=== PATIENT | female | born 1950 | race Caucasian/White ===

== ENCOUNTER 2019-04-04 10:27 | Emergency (ER) | payer MEDICARE, OTHER ==
--- NOTE | 2019-04-04 11:41 | EDM.PDOC ---
ED HPI GENERAL MEDICAL PROBLEM - General Chief Complaint: Respiratory Problem Stated Complaint: SOB Time Seen by Provider: 04/04/19 11:25 Source of Information: Reports: Patient History Limitations: Reports: No Limitations - History of Present Illness INITIAL COMMENTS - FREE TEXT/NARRATIVE: 68-year-old female with COPD, has had an exacerbation of shortness of breath and cough over the past 3 days. No fevers or chills. This is a common recurring syndrome which her doctors in [place] treat with a Medrol Dosepak and antibiotics. She has no chest pain. Onset: Gradual Duration: Day(s): (4 days) Associated Symptoms: Reports: Shortness of Breath. Denies: Fever/Chills, Headaches, Nausea/Vomiting - Related Data Allergies Allergy/AdvReac Type Severity Reaction Status Date / Time No Known Allergies Allergy Verified 04/04/19 10:54 Home Meds: Home Meds Albuterol Sulfate [Proair Hfa] 1 dose IH ASDIRECTED PRN 04/04/19 [History] Fluticasone/Salmeterol [Advair 250-50 Diskus] 1 dose IH DAILY 04/04/19 [History] PARoxetine HCl [Paxil] 40 mg PO DAILY 04/04/19 [History] Tiotropium [Spiriva Handihaler] 1 appful IH DAILY 04/04/19 [History] Past Medical History Cardiovascular History: Reports: High Cholesterol, Hypertension Respiratory History: Reports: COPD Gastrointestinal History: Reports: None Genitourinary History: Reports: None 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: Musculoskeletal History: Reports: Arthritis Psychiatric History: Reports: Anxiety Endocrine/Metabolic History: Reports: Diabetes, Type I, Obesity/BMI 30+ - Past Surgical History Head Surgeries/Procedures: Reports: None HEENT Surgical History: Reports: Cataract Surgery, Tonsillectomy Cardiovascular Surgical History: Reports: None Respiratory Surgical History: Reports: None GI Surgical History: Reports: Appendectomy, Hernia, Abdominal Female Surgical History: Reports: Hysterectomy Endocrine Surgical History: Reports: None Musculoskeletal Surgical History: Reports: None Dermatological Surgical History: Reports: None Social & Family History - Tobacco Use Smoking Status *Q: Former Smoker Used Tobacco, but Quit: Yes Month/Year Tobacco Last Used: 2015 Second Hand Smoke Exposure: No - Caffeine Use Caffeine Use: Reports: Soda - Alcohol Use Days Per Week of Alcohol Use: 2 Number of Drinks Per Day: 2 Total Drinks Per Week: 4 - Recreational Drug Use Recreational Drug Use: No ED ROS GENERAL - Review of Systems Review Of Systems: See Below Constitutional: Reports: Malaise. Denies: Fever, Chills HEENT: Reports: No Symptoms Respiratory: Reports: Shortness of Breath, Cough. Denies: Sputum GI/Abdominal: Denies: Abdominal Pain, Nausea, Vomiting Skin: Reports: No Symptoms Neurological: Denies: Headache ED EXAM, GENERAL - Physical Exam Exam: See Below Exam Limited By: No Limitations General Appearance: Alert, No Apparent Distress Respiratory/Chest: No Respiratory Distress, Other (Decreased breath sounds throughout but no significant wheezing or rales. Mild increased respiratory effort) Extremities: No: Pedal Edema Neurological: Alert, Oriented Course - Vital Signs Last Recorded V/S: Last Vital Signs Temp 98 F 04/04/19 10:58 Pulse 90 04/04/19 10:58 Resp 22 H 04/04/19 10:58 BP 163/91 H 04/04/19 10:58 Pulse Ox 92 L 04/04/19 10:58 - Re-Assessments/Exams Free Text/Narrative Re-Assessment/Exam: 04/04/19 11:40 Patient was treated with Zithromax and a Medrol Dosepak. She'll return if not improving despite treatment. Departure - Departure Time of Disposition: 11:59 Disposition: Home, Self-Care 01 Clinical Impression: COPD exacerbation - Discharge Information Instructions: Chronic Obstructive Pulmonary Disease, [id number] Referrals: PCP,None [Primary Care Provider] - Forms: ED Department Discharge Care Plan Goals: Take steroids and antibiotic as prescribed. Activity as tolerated and continue your current medications. Return if worsening despite treatment.
== END 2019-04-04 11:59 | disposition home or self-care (01) ==
LOC: JP.ED 10:27
DX: J44.1 Chronic obstructive pulmonary disease with (acute) exacerbation (principal); E78.00 Pure hypercholesterolemia, unspecified; I10 Essential (primary) hypertension; Z79.899 Other long term (current) drug therapy; Z87.891 Personal history of nicotine dependence
CPT/HCPCS: 99284

== ENCOUNTER 2019-05-10 20:22 | Emergency (ER) | payer MEDICARE, OTHER ==
--- NOTE | 2019-05-10 21:55 | EDM.PDOC ---
ED HPI GENERAL MEDICAL PROBLEM - General Chief Complaint: Laceration Stated Complaint: HEAD LACERATION/COPD Time Seen by Provider: 05/10/19 21:54 Source of Information: Reports: Patient History Limitations: Reports: No Limitations - History of Present Illness INITIAL COMMENTS - FREE TEXT/NARRATIVE: was at home, getting out of shower when she slipped and hit her head on toilet. No LOC. Laceration to forehead; 1 cm. Linear; no bleeding. Alert and oriented; Onset: Today Location: Reports: Face (forehead) Severity: Mild Improves with: Reports: None Worsens with: Reports: None Associated Symptoms: Reports: No Other Symptoms - Related Data Allergies Allergy/AdvReac Type Severity Reaction Status Date / Time No Known Allergies Allergy Verified 05/10/19 21:35 Home Meds: Home Meds Albuterol Sulfate [Proair Hfa] 1 dose IH ASDIRECTED PRN 04/04/19 [History] Fluticasone/Salmeterol [Advair 250-50 Diskus] 1 dose IH DAILY 04/04/19 [History] PARoxetine HCl [Paxil] 40 mg PO DAILY 04/04/19 [History] Tiotropium [Spiriva Handihaler] 1 appful IH DAILY 04/04/19 [History] amLODIPine Besylate [Amlodipine Besylate] 05/10/19 [History] atorvaSTATin [Lipitor] 05/10/19 [History] Past Medical History Cardiovascular History: Reports: High Cholesterol, Hypertension Respiratory History: Reports: COPD Gastrointestinal History: Reports: None Genitourinary History: Reports: 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: Musculoskeletal History: Reports: Arthritis Psychiatric History: Reports: Anxiety Endocrine/Metabolic History: Reports: Diabetes, Type I, Obesity/BMI 30+ - Past Surgical History Head Surgeries/Procedures: Reports: None HEENT Surgical History: Reports: Cataract Surgery, Tonsillectomy Cardiovascular Surgical History: Reports: None Respiratory Surgical History: Reports: None GI Surgical History: Reports: Appendectomy, Hernia, Abdominal Female Surgical History: Reports: Hysterectomy Endocrine Surgical History: Reports: None Musculoskeletal Surgical History: Reports: None Dermatological Surgical History: Reports: None Social & Family History - Tobacco Use Smoking Status *Q: Never Smoker - Caffeine Use Caffeine Use: Reports: Soda ED ROS GENERAL - Review of Systems Review Of Systems: ROS reveals no pertinent complaints other than HPI. Constitutional: Reports: No Symptoms HEENT: Reports: No Symptoms Respiratory: Reports: No Symptoms, Other (she has COPD but has no concerns currently) Cardiovascular: Reports: No Symptoms Musculoskeletal: Reports: No Symptoms Skin: Reports: Other (lac to forehead) Neurological: Reports: No Symptoms Psychiatric: Reports: No Symptoms Hematologic/Lymphatic: Reports: No Symptoms ED EXAM, SKIN/RASH Exam: See Below Exam Limited By: No Limitations General Appearance: Alert, WD/WN, No Apparent Distress Eye Exam: Bilateral Eye: EOMI, PERRL Ears: Normal External Exam Nose: Normal Inspection Head: Atraumatic, Normocephalic Neck: Normal Inspection, Supple, Full Range of Motion Respiratory/Chest: No Respiratory Distress, Normal Breath Sounds Cardiovascular: Regular Rate, Rhythm Extremities: Normal Inspection, Normal Range of Motion Neurological: Alert, Oriented, CN II-XII Intact, Normal Cognition, Normal Gait, Normal Reflexes, No Motor/Sensory Deficits Psychiatric: Normal Affect, Normal Mood Skin: Warm, Dry Location, Skin: Face, Other (forehead; central, 1 cm; linear; bleeding controlled) ED SKIN PROCEDURES - Laceration/Wound Repair Forehead Lac/Wound length In cm: 1 Appearance: Subcutaneous Distal NVT: Neuro & Vascular Intact Anesthetic Type: Local Local Anesthesia - Lidocaine (Xylocaine): 1% with EPI Local Anesthetic Volume: 3cc Skin Prep: Providone-Iodine (Betadine), Saline, Sterile Drape Exploration/Debridement/Repair: Wound Explored, In a Bloodless Field, Wound Margins Revised Closed with: Sutures Suture Size: 4-0 # of Sutures: 3 Suture Type: Silk Sterile Dressing Applied: Provider Tetanus Status Addressed: Yes Complications: No Course - Vital Signs Last Recorded V/S: Last Vital Signs Temp 95.9 F 05/10/19 21:41 Pulse 91 05/10/19 21:41 Resp 22 H 05/10/19 21:41 BP 148/76 H 05/10/19 21:41 Pulse Ox 91 L 05/10/19 21:41 - Orders/Labs/Meds Meds: Medications Discontinued Medications Generic Name Dose Route Start Last Admin Trade Name Freq PRN Reason Stop Dose Admin Lidocaine/Epinephrine 5 ml 05/10/19 22:00 05/10/19 22:14 Xylocaine 1% With Epinephrine 1:100,000 SUBCUT 05/10/19 22:01 5 ml NOW STA Administration Departure - Departure Time of Disposition: 22:25 Disposition: Home, Self-Care 01 Condition: Good Clinical Impression: Laceration of forehead - Discharge Information *PRESCRIPTION DRUG MONITORING PROGRAM REVIEWED*: Not Applicable *COPY OF PRESCRIPTION DRUG MONITORING REPORT IN PATIENT [place]: Not Applicable Instructions: Laceration Care, Adult, [id number] Referrals: PCP,None [Primary Care Provider] - Forms: ED Department Discharge Additional Instructions: Keep clean and dry for 24 hours Watch for infection Remove sutures 7 days Call for questions. - Problem List & Annotations (1) Laceration of forehead SNOMED Code(s): 277463925 Code(s): S01.81XA - LACERATION W/O FOREIGN BODY OF OTH PART OF HEAD, INIT ENCNTR Status: Acute Priority: Low Current Visit: Yes Qualifiers: Encounter type: initial encounter Qualified Code(s): S01.81XA - Laceration without foreign body of other part of head, initial encounter - Problem List Review Problem List Initiated/Reviewed/Updated: Yes
[2019-05-10] MEDS ORDERED: Lidocaine 1% with EPINEPHrine 1:100,000 50 ML MDV SUBCUT STA (22:00)
== END 2019-05-10 22:36 | disposition home or self-care (01) ==
LOC: JP.ED 20:22
DX: S01.81XA Laceration without foreign body of other part of head, initial encounter (principal); E78.00 Pure hypercholesterolemia, unspecified; I10 Essential (primary) hypertension; J44.9 Chronic obstructive pulmonary disease, unspecified; E10.9 Type 1 diabetes mellitus without complications; E66.9 Obesity, unspecified; Z68.36 Body mass index [BMI] 36.0-36.9, adult; Z79.899 Other long term (current) drug therapy; W01.198A Fall on same level from slipping, tripping and stumbling with subsequent striking against other object, initial encounter; Y92.002 Bathroom of unspecified non-institutional (private) residence as the place of occurrence of the external cause
CPT/HCPCS: 12011; 99282

== ENCOUNTER 2019-05-17 11:52 | Emergency (ER) | payer MEDICARE, OTHER ==
--- NOTE | 2019-05-17 12:19 | EDM.PDOC ---
ED HPI GENERAL MEDICAL PROBLEM - General Chief Complaint: General Stated Complaint: WOUND RECHECK Time Seen by Provider: 05/17/19 12:07 Source of Information: Reports: Patient History Limitations: Reports: No Limitations - History of Present Illness INITIAL COMMENTS - FREE TEXT/NARRATIVE: 68 yo presents for suture removal. Sutures placed in this facility. healing well without complaint. denies headache - Related Data Allergies Allergy/AdvReac Type Severity Reaction Status Date / Time No Known Allergies Allergy Verified 05/17/19 12:05 Home Meds: Home Meds Albuterol Sulfate [Proair Hfa] 1 dose IH ASDIRECTED PRN 04/04/19 [History] Fluticasone/Salmeterol [Advair 250-50 Diskus] 1 dose IH DAILY 04/04/19 [History] PARoxetine HCl [Paxil] 40 mg PO DAILY 04/04/19 [History] Tiotropium [Spiriva Handihaler] 1 appful IH DAILY 04/04/19 [History] amLODIPine Besylate [Amlodipine Besylate] 05/10/19 [History] atorvaSTATin [Lipitor] 05/10/19 [History] Past Medical History Cardiovascular History: Reports: High Cholesterol, Hypertension Respiratory History: Reports: COPD Gastrointestinal History: Reports: None Genitourinary History: Reports: None 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: Musculoskeletal History: Reports: Arthritis Psychiatric History: Reports: Anxiety Endocrine/Metabolic History: Reports: Diabetes, Type I, Obesity/BMI 30+ - Past Surgical History Head Surgeries/Procedures: Reports: None HEENT Surgical History: Reports: Cataract Surgery, Tonsillectomy Cardiovascular Surgical History: Reports: None Respiratory Surgical History: Reports: None GI Surgical History: Reports: Appendectomy, Hernia, Abdominal Female Surgical History: Reports: Hysterectomy Endocrine Surgical History: Reports: None Musculoskeletal Surgical History: Reports: None Dermatological Surgical History: Reports: None Social & Family History - Tobacco Use Smoking Status *Q: Former Smoker Used Tobacco, but Quit: Yes Month/Year Tobacco Last Used: 2015 - Caffeine Use Caffeine Use: Reports: Soda - Recreational Drug Use Recreational Drug Use: No ED ROS GENERAL - Review of Systems Review Of Systems: See Below Constitutional: Denies: Fever, Chills, Fatigue Skin: Reports: No Symptoms ED EXAM, GENERAL - Physical Exam Exam: See Below Free Text/Narrative:: exam limited to laceration Exam Limited By: No Limitations General Appearance: Alert, WD/WN, No Apparent Distress Skin Exam: Other (wound sutures removed, healing well) ED GENERAL MEDICAL PROCEDURES - Additional/Other Procedure(s) Other (Free Text) Procedure(s): 3 sutures removed. wound left open. pt tolerated well Course - Vital Signs Last Recorded V/S: Last Vital Signs Temp 35.8 C 05/17/19 12:07 Pulse 93 05/17/19 12:07 Resp 15 05/17/19 12:07 BP 151/74 H 05/17/19 12:07 Pulse Ox 93 L 05/17/19 12:07 Departure - Departure Time of Disposition: 12:18 Disposition: Home, Self-Care 01 Condition: Good Clinical Impression: Visit for suture removal - Discharge Information *PRESCRIPTION DRUG MONITORING PROGRAM REVIEWED*: Not Applicable *COPY OF PRESCRIPTION DRUG MONITORING REPORT IN PATIENT [place]: Not Applicable Instructions: Suture Removal, Care After Referrals: PCP,None [Primary Care Provider] - Forms: ED Department Discharge Additional Instructions: massage daily with facial lotion protect from the sun
== END 2019-05-17 12:42 | disposition home or self-care (01) ==
LOC: JP.ED 11:52
DX: S01.81XD Laceration without foreign body of other part of head, subsequent encounter (principal); W01.198D Fall on same level from slipping, tripping and stumbling with subsequent striking against other object, subsequent encounter
CPT/HCPCS: 99281; 99282

== ENCOUNTER 2020-06-13 01:36 | Inpatient (IN) | payer MEDICARE, OTHER ==
[2020-06-13] MEDS ORDERED: Sodium Chloride 0.9% 10 ML Syringe FLUSH PRN ×2 (02:09→06:11)
[2020-06-13] MEDS ORDERED: Lactated Ringers 1,000 ML IV SCH (02:15)
--- NOTE | 2020-06-13 02:46 | EDM.PDOCBH ---
ED HPI GENERAL MEDICAL PROBLEM - General Chief Complaint: Drug or Alcohol Abuse Stated Complaint: MEDICAL [facility] Time Seen by Provider: 06/13/20 02:05 Source of Information: Reports: Patient, EMS, RN Notes Reviewed History Limitations: Reports: No Limitations - History of Present Illness INITIAL COMMENTS - FREE TEXT/NARRATIVE: 70-year-old female presents emergency department today via EMS services she did have a suicidal attempt while consuming a large amount of alcohol tonight she took handfuls of Paxil prescribed medication for depression. She states she did not want to live anymore and feels it has been a culmination of events within her family over the last year or so. Estimated time of ingestion approximately 11:30 PM on June 12 - Related Data Allergies Allergy/AdvReac Type Severity Reaction Status Date / Time No Known Allergies Allergy Verified 06/13/20 01:47 Home Meds: Home Meds Albuterol Sulfate [Proair Hfa] 1 dose IH ASDIRECTED PRN 04/04/19 [History] Fluticasone Propion/Salmeterol [Advair 250-50 Diskus] 1 dose IH BID 04/04/19 [History] PARoxetine HCl [Paxil] 40 mg PO DAILY 04/04/19 [History] Tiotropium [Spiriva Handihaler] 2 puff IH DAILY 04/04/19 [History] amLODIPine Besylate [Amlodipine Besylate] 5 mg PO DAILY 05/10/19 [History] atorvaSTATin [Lipitor] 20 mg PO DAILY 05/10/19 [History] Past Medical History Cardiovascular History: Reports: High Cholesterol, Hypertension Respiratory History: Reports: COPD WEATHER[place] History: Reports: Musculoskeletal History: Reports: Arthritis Psychiatric History: Reports: Anxiety Endocrine/Metabolic History: Reports: Diabetes, Type I, Obesity/BMI 30+ - Past Surgical History Head Surgeries/Procedures: Reports: None HEENT Surgical History: Reports: Cataract Surgery, Tonsillectomy Cardiovascular Surgical History: Reports: None Respiratory Surgical History: Reports: None GI Surgical History: Reports: Appendectomy, Hernia, Abdominal Female Surgical History: Reports: Hysterectomy Endocrine Surgical History: Reports: None Musculoskeletal Surgical History: Reports: None Dermatological Surgical History: Reports: None Social & Family History - Tobacco Use Smoking Status *Q: Former Smoker Used Tobacco, but Quit: No - Caffeine Use Caffeine Use: Reports: Soda - Recreational Drug Use Recreational Drug Use: No ED ROS GENERAL - Review of Systems Review Of Systems: See Below Constitutional: Reports: No Symptoms HEENT: Reports: No Symptoms Respiratory: Reports: No Symptoms Cardiovascular: Reports: No Symptoms GI/Abdominal: Reports: No Symptoms : Reports: No Symptoms Psychiatric: Reports: Depression, Suicidal Ideation ED EXAM, BEHAVIORAL HEALTH - Physical Exam Exam: See Below Exam Limited By: No Limitations General Appearance: Alert, WD/WN, No Apparent Distress Eye Exam: Bilateral Eye: PERRL Respiratory/Chest: No Respiratory Distress, Lungs Clear, Normal Breath Sounds, No Accessory Muscle Use, Chest Non-Tender Cardiovascular: Regular Rate, Rhythm, No Murmur GI/Abdominal: Soft, Non-Tender Psychiatric: Depressed Mood, Suicidal Plan, Suicidal Thoughts COURSE, BEHAVIORAL HEALTH COMP - Course Vital Signs: Last Vital Signs Temp 97.8 F 06/13/20 01:50 Pulse 90 06/13/20 02:29 Resp 17 06/13/20 02:29 BP 91/51 L 06/13/20 02:29 Pulse Ox 91 L 06/13/20 02:29 Orders, Labs, Meds: Active Orders 24 hr Category Date Time Status EKG Documentation Completion [RC] ASDIRECTED Care 06/13/20 02:10 Active Peripheral IV Care [RC] . DIRECTED Care 06/13/20 02:09 Active Lactated Ringers [Ringers, Lactated] 1,000 ml Med 06/13/20 02:15 Active IV ASDIRECTED Sodium Chloride 0.9% [Saline Flush] Med 06/13/20 02:09 Active 10 ml FLUSH ASDIRECTED PRN Peripheral IV Insertion Adult [OM.PC] Urgent Oth 06/13/20 02:09 Ordered EKG 12 Lead [EK] Urgent Ther 06/13/20 02:09 Ordered Medication Orders Lactated Ringer's (Ringers, Lactated) 1,000 mls @ 125 mls/hr IV ASDIRECTED HIRAM Last Admin: 06/13/20 02:49 Dose: 125 mls/hr Documented by: AUDREY Sodium Chloride (Saline Flush) 10 ml FLUSH ASDIRECTED PRN PRN Reason: Keep Vein Open Laboratory Tests 06/13/20 06/13/20 06/13/20 Range/Units 01:45 02:09 02:09 WBC (4.5-11.0) K/uL RBC (3.30-5.50) M/uL Hgb (12.0-15.0) g/dL Hct (36.0-48.0) % MCV (80-98) fL MCH (27-31) pg MCHC (32-36) % Plt Count (150-400) K/uL Neut % (Auto) (36-66) % Lymph % (Auto) (24-44) % Placer % (Auto) (2-6) % Eos % (Auto) (2-4) % Baso % (Auto) (0-1) % PT (9.5-12.0) sec INR (0.80-1.20) Sodium (140-148) mmol/L Potassium (3.6-5.2) mmol/L Chloride (100-108) mmol/L Carbon Dioxide (21-32) mmol/L Anion Gap (5.0-14.0) mmol/L BUN (7-18) mg/dL Creatinine (0.6-1.0) mg/dL Est Cr Clr Drug Dosing Estimated GFR (MDRD) (>60) Glucose (74-106) mg/dL Calcium (8.5-10.1) mg/dL Magnesium (1.8-2.4) mg/dL Total Bilirubin (0.2-1.0) mg/dL AST (15-37) U/L ALT (12-78) U/L Alkaline Phosphatase (46-116) U/L Total Protein (6.4-8.2) g/dL Albumin (3.4-5.0) g/dL Globulin (2.3-3.5) g/dL Albumin/Globulin Ratio (1.2-2.2) Urine Color Yellow (YELLOW) Urine Appearance Clear (CLEAR) Urine pH 5.5 (5.0-8.0) Ur Specific [place] 1.010 (1.008-1.030) Urine Protein Negative (NEGATIVE) mg/dL Urine Glucose (UA) Negative (NEGATIVE) mg/dL Urine Ketones Negative (NEGATIVE) mg/dL Urine Occult Blood Small H (NEGATIVE) Urine Nitrite Negative (NEGATIVE) Urine Bilirubin Negative (NEGATIVE) Urine Urobilinogen 0.2 (0.2-1.0) EU/dL Ur Leukocyte Esterase Negative (NEGATIVE) Urine RBC 0-5 (0-5) Urine WBC 0-5 (0-5) Ur Epithelial Cells Rare Amorphous Sediment Not seen Urine Bacteria Not seen Urine Mucus Not seen Salicylates (2.0-20.0) mg/dL Urine Opiates Screen Negative (NEGATIVE) Ur Oxycodone Screen Negative (NEGATIVE) Urine Methadone Screen Negative (NEGATIVE) Ur Propoxyphene Screen Negative (NEGATIVE) Acetaminophen (10.0-30.0) ug/mL Ur Barbiturates Screen Negative (NEGATIVE) Ur Tricyclics Screen Negative (NEGATIVE) Ur Phencyclidine Scrn Negative (NEGATIVE) Ur Amphetamine Screen Negative (NEGATIVE) U Methamphetamines Scrn Negative (NEGATIVE) Urine MDMA Screen Negative (NEGATIVE) U Benzodiazepines Scrn Negative (NEGATIVE) U Cocaine Metab Screen Negative (NEGATIVE) U Marijuana (THC) Screen Negative (NEGATIVE) Ethyl Alcohol 181 mg/dL 06/13/20 06/13/20 06/13/20 Range/Units 02:15 02:15 02:15 WBC 6.7 (4.5-11.0) K/uL RBC 4.23 (3.30-5.50) M/uL Hgb 12.6 (12.0-15.0) g/dL Hct 39.2 (36.0-48.0) % MCV 93 (80-98) fL MCH 30 (27-31) pg MCHC 32 (32-36) % Plt Count 324 (150-400) K/uL Neut % (Auto) 63 (36-66) % Lymph % (Auto) 25 (24-44) % Placer % (Auto) 8 H (2-6) % Eos % (Auto) 4 (2-4) % Baso % (Auto) 1 (0-1) % PT 10.5 (9.5-12.0) sec INR 0.96 (0.80-1.20) Sodium 142 (140-148) mmol/L Potassium 3.7 (3.6-5.2) mmol/L Chloride 107 (100-108) mmol/L Carbon Dioxide 23 (21-32) mmol/L Anion Gap 11.8 (5.0-14.0) mmol/L BUN 12 (7-18) mg/dL Creatinine 0.9 (0.6-1.0) mg/dL Est Cr Clr Drug Dosing TNP Estimated GFR (MDRD) > 60 (>60) Glucose 130 H (74-106) mg/dL Calcium 8.4 L (8.5-10.1) mg/dL Magnesium 2.0 (1.8-2.4) mg/dL Total Bilirubin 0.2 (0.2-1.0) mg/dL AST 18 (15-37) U/L ALT 23 (12-78) U/L Alkaline Phosphatase 95 (46-116) U/L Total Protein 6.2 L (6.4-8.2) g/dL Albumin 3.3 L (3.4-5.0) g/dL Globulin 2.9 (2.3-3.5) g/dL Albumin/Globulin Ratio 1.1 L (1.2-2.2) Urine Color (YELLOW) Urine Appearance (CLEAR) Urine pH (5.0-8.0) Ur Specific [place] (1.008-1.030) Urine Protein (NEGATIVE) mg/dL Urine Glucose (UA) (NEGATIVE) mg/dL Urine Ketones (NEGATIVE) mg/dL Urine Occult Blood (NEGATIVE) Urine Nitrite (NEGATIVE) Urine Bilirubin (NEGATIVE) Urine Urobilinogen (0.2-1.0) EU/dL Ur Leukocyte Esterase (NEGATIVE) Urine RBC (0-5) Urine WBC (0-5) Ur Epithelial Cells Amorphous Sediment Urine Bacteria Urine Mucus Salicylates (2.0-20.0) mg/dL Urine Opiates Screen (NEGATIVE) Ur Oxycodone Screen (NEGATIVE) Urine Methadone Screen (NEGATIVE) Ur Propoxyphene Screen (NEGATIVE) Acetaminophen (10.0-30.0) ug/mL Ur Barbiturates Screen (NEGATIVE) Ur Tricyclics Screen (NEGATIVE) Ur Phencyclidine Scrn (NEGATIVE) Ur Amphetamine Screen (NEGATIVE) U Methamphetamines Scrn (NEGATIVE) Urine MDMA Screen (NEGATIVE) U Benzodiazepines Scrn (NEGATIVE) U Cocaine Metab Screen (NEGATIVE) U Marijuana (THC) Screen (NEGATIVE) Ethyl Alcohol mg/dL 06/13/20 06/13/20 Range/Units 02:15 02:15 WBC (4.5-11.0) K/uL RBC (3.30-5.50) M/uL Hgb (12.0-15.0) g/dL Hct (36.0-48.0) % MCV (80-98) fL MCH (27-31) pg MCHC (32-36) % Plt Count (150-400) K/uL Neut % (Auto) (36-66) % Lymph % (Auto) (24-44) % [place] % (Auto) (2-6) % Eos % (Auto) (2-4) % Baso % (Auto) (0-1) % PT (9.5-12.0) sec INR (0.80-1.20) Sodium (140-148) mmol/L Potassium (3.6-5.2) mmol/L Chloride (100-108) mmol/L Carbon Dioxide (21-32) mmol/L Anion Gap (5.0-14.0) mmol/L BUN (7-18) mg/dL Creatinine (0.6-1.0) mg/dL Est Cr Clr Drug Dosing Estimated GFR (MDRD) (>60) Glucose (74-106) mg/dL Calcium (8.5-10.1) mg/dL Magnesium (1.8-2.4) mg/dL Total Bilirubin (0.2-1.0) mg/dL AST (15-37) U/L ALT (12-78) U/L Alkaline Phosphatase (46-116) U/L Total Protein (6.4-8.2) g/dL Albumin (3.4-5.0) g/dL Globulin (2.3-3.5) g/dL Albumin/Globulin Ratio (1.2-2.2) Urine Color (YELLOW) Urine Appearance (CLEAR) Urine pH (5.0-8.0) Ur Specific [place] (1.008-1.030) Urine Protein (NEGATIVE) mg/dL Urine Glucose (UA) (NEGATIVE) mg/dL Urine Ketones (NEGATIVE) mg/dL Urine Occult Blood (NEGATIVE) Urine Nitrite (NEGATIVE) Urine Bilirubin (NEGATIVE) Urine Urobilinogen (0.2-1.0) EU/dL Ur Leukocyte Esterase (NEGATIVE) Urine RBC (0-5) Urine WBC (0-5) Ur Epithelial Cells Amorphous Sediment Urine Bacteria Urine Mucus Salicylates 1.3 L (2.0-20.0) mg/dL Urine Opiates Screen (NEGATIVE) Ur Oxycodone Screen (NEGATIVE) Urine Methadone Screen (NEGATIVE) Ur Propoxyphene Screen (NEGATIVE) Acetaminophen 0.0 L (10.0-30.0) ug/mL Ur Barbiturates Screen (NEGATIVE) Ur Tricyclics Screen (NEGATIVE) Ur Phencyclidine Scrn (NEGATIVE) Ur Amphetamine Screen (NEGATIVE) U Methamphetamines Scrn (NEGATIVE) Urine MDMA Screen (NEGATIVE) U Benzodiazepines Scrn (NEGATIVE) U Cocaine Metab Screen (NEGATIVE) U Marijuana (THC) Screen (NEGATIVE) Ethyl Alcohol mg/dL Medications Generic Name Dose Route Start Last Admin Trade Name Freq PRN Reason Stop Dose Admin Lactated Ringer's 1,000 mls @ 125 mls/hr 06/13/20 02:15 06/13/20 02:49 Ringers, Lactated IV 125 mls/hr ASDIRECTED HIRAM Administration Sodium Chloride 10 ml 06/13/20 02:09 Saline Flush FLUSH ASDIRECTED PRN Keep Vein Open Departure - Departure Time of Disposition: 03:03 Disposition: Home, Self-Care 01 Condition: Fair Clinical Impression: Suicide attempt, Intentional overdose of drug in tablet form - Discharge Information Referrals: PCP,None [Primary Care Provider] - Forms: ED Department Discharge Sepsis Event Note (ED) - Evaluation Sepsis Screening Result: No Definite Risk - Focused Exam Vital Signs: Vital Signs Temp Pulse Resp BP Pulse Ox 06/13/20 02:29 90 17 91/51 L 91 L 06/13/20 01:50 97.8 F 89 12 113/64 92 L - My Orders Last 24 Hours: My Active Orders 06/13/20 02:09 Peripheral IV Care [RC] . DIRECTED Sodium Chloride 0.9% [Saline Flush] 10 ml FLUSH ASDIRECTED PRN Peripheral IV Insertion Adult [OM.PC] Urgent EKG 12 Lead [EK] Urgent 06/13/20 02:10 EKG Documentation Completion [RC] ASDIRECTED 06/13/20 02:15 Lactated Ringers [Ringers, Lactated] 1,000 ml IV ASDIRECTED - Assessment/Plan Last 24 Hours: My Active Orders 06/13/20 02:09 Peripheral IV Care [RC] . DIRECTED Sodium Chloride 0.9% [Saline Flush] 10 ml FLUSH ASDIRECTED PRN Peripheral IV Insertion Adult [OM.PC] Urgent EKG 12 Lead [EK] Urgent 06/13/20 02:10 EKG Documentation Completion [RC] ASDIRECTED 06/13/20 02:15 Lactated Ringers [Ringers, Lactated] 1,000 ml IV ASDIRECTED Plan: Assessment Acuity = acute Site and laterality = suicidal attempts with Paxil overdose Etiology = unknown Manifestations = none Location of injury = Home Lab values = CBC, CMP, INR within normal limits EKG does demonstrate a prolonged QT interval at 538 otherwise sinus rhythm no ST elevations or depressions, alcohol level is 181- Tylenol negative salicylate level Plan Call discussed case hospitalist on-call at 2:40 he kindly agreed to come evaluate the patient in the emergency department for admission suicidal precautions have been taken did discuss case with poison control recommended observation for suicide next 8 to 12 hours also long QT syndrome as possible This note was dictated using [employer] voice recognition software please call with any questions on syntax or grammar.
[2020-06-13] MEDS ORDERED: Ondansetron 4 MG/2 ML SDV IV PRN (06:11)
[2020-06-13] MEDS ORDERED: Enoxaparin 40 MG/0.4 ML Syringe SUBCUT SCH (06:11)
--- NOTE | 2020-06-13 06:19 | PCM.HP.2 ---
H&P History of Present Illness - General Date of Service: 06/13/20 Admit Problem/Dx: Admission Diagnosis/Problem Admission Diagnosis/Problem Drug overdose - suicide Source of Information: Patient, Provider, RN Notes Reviewed History Limitations: Reports: No Limitations - History of Present Illness Initial Comments - Free Text/Narative: Ms. Parnell is a 70-year-old woman who was admitted through the emergency department for monitoring after having taken a drug overdose in an apparent suicide attempt. She had family visiting for the weekend and there was stress related to that as well as alcohol intoxication. She took an overdose of Paxil last night, which she now admits was a mistake. She currently denies suicidal ideation or intent. Poison control is recommended that she be monitored for 12 hours. - Related Data Allergies/Adverse Reactions: Allergies Allergy/AdvReac Type Severity Reaction Status Date / Time No Known Allergies Allergy Verified 06/13/20 01:47 Home Medications: Home Meds Albuterol Sulfate [Proair Hfa] 1 dose IH ASDIRECTED PRN 04/04/19 [History] Fluticasone Propion/Salmeterol [Advair 250-50 Diskus] 1 dose IH BID 04/04/19 [History] PARoxetine HCl [Paxil] 40 mg PO DAILY 04/04/19 [History] Tiotropium [Spiriva Handihaler] 2 puff IH DAILY 04/04/19 [History] amLODIPine Besylate [Amlodipine Besylate] 5 mg PO DAILY 05/10/19 [History] atorvaSTATin [Lipitor] 20 mg PO DAILY 05/10/19 [History] Past Medical History Cardiovascular History: Reports: High Cholesterol, Hypertension Respiratory History: Reports: COPD Gastrointestinal History: Reports: None Genitourinary History: Reports: None 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: Musculoskeletal History: Reports: Arthritis Psychiatric History: Reports: Anxiety Endocrine/Metabolic History: Reports: Diabetes, Type I, Obesity/BMI 30+ - Past Surgical History Head Surgeries/Procedures: Reports: None HEENT Surgical History: Reports: Cataract Surgery, Tonsillectomy Cardiovascular Surgical History: Reports: None Respiratory Surgical History: Reports: None GI Surgical History: Reports: Appendectomy, Hernia, Abdominal Female Surgical History: Reports: Hysterectomy Endocrine Surgical History: Reports: None Musculoskeletal Surgical History: Reports: None Dermatological Surgical History: Reports: None Social & Family History - Tobacco Use Smoking Status *Q: Former Smoker Used Tobacco, but Quit: No - Caffeine Use Caffeine Use: Reports: Soda - Recreational Drug Use Recreational Drug Use: No H&P Review of Systems - Review of Systems: Review Of Systems: See Below General: Reports: No Symptoms HEENT: Reports: No Symptoms Pulmonary: Reports: Shortness of Breath. Denies: Wheezing, Pleuritic Chest Pain, Cough, Sputum, Hemoptysis Cardiovascular: Reports: Dyspnea on Exertion. Denies: Chest Pain, Palpitations, Orthopnea, PND, Edema, Lightheadedness Gastrointestinal: Reports: No Symptoms Genitourinary: Reports: No Symptoms Musculoskeletal: Reports: No Symptoms Skin: Reports: No Symptoms Psychiatric: Reports: Depression, Anxiety Neurological: Reports: No Symptoms Hematologic/Lymphatic: Reports: No Symptoms Immunologic: Reports: No Symptoms Exam - Exam Exam: See Below - Vital Signs Vital Signs: Last Vital Signs Temp 97.8 F 06/13/20 01:50 Pulse 91 06/13/20 04:25 Resp 15 06/13/20 04:25 BP 144/87 H 06/13/20 04:25 Pulse Ox 93 L 06/13/20 04:25 Weight: 190 lb - Exam Quality Assessment: DVT Prophylaxis General: Alert, Oriented, Cooperative, Mild Distress HEENT: Conjunctiva Clear, Hearing Intact, Mucosa Moist & [place], Normal Nasal Septum, Posterior Pharynx Clear, Pupils Equal Neck: Supple, Trachea Midline, +2 Carotid Pulse wo Bruit Lungs: Clear to Auscultation, Normal Respiratory Effort, Decreased Breath Sounds. No: Rales, Rhonchi, Wheezing Cardiovascular: Regular Rate, Regular Rhythm, Normal S1, Normal S2. No: Systolic Murmur, Diastolic Murmur GI/Abdominal Exam: Soft, Non-Tender, No Organomegaly, No Distention Back Exam: Normal Inspection, Full Range of Motion Extremities: Non-Tender, No Pedal Edema Skin: Warm, Dry, Intact Neurological: Cranial Nerves Intact, Strength Equal Bilateral, Normal Speech, Normal Tone, Sensation Intact. No: Focal Deficit Neuro Extensive - Mental Status: Alert, Oriented x3, Normal Mood/Affect, Normal Cognition, Memory Intact - Patient Data Lab Results Last 24 hrs: Laboratory Results - last 24 hr 06/13/20 06/13/20 06/13/20 Range/Units 01:45 02:09 02:09 WBC (4.5-11.0) K/uL RBC (3.30-5.50) M/uL Hgb (12.0-15.0) g/dL Hct (36.0-48.0) % MCV (80-98) fL MCH (27-31) pg MCHC (32-36) % Plt Count (150-400) K/uL Neut % (Auto) (36-66) % Lymph % (Auto) (24-44) % [place] % (Auto) (2-6) % Eos % (Auto) (2-4) % Baso % (Auto) (0-1) % PT (9.5-12.0) sec INR (0.80-1.20) Sodium (140-148) mmol/L Potassium (3.6-5.2) mmol/L Chloride (100-108) mmol/L Carbon Dioxide (21-32) mmol/L Anion Gap (5.0-14.0) mmol/L BUN (7-18) mg/dL Creatinine (0.6-1.0) mg/dL Est Cr Clr Drug Dosing Estimated GFR (MDRD) (>60) Glucose (74-106) mg/dL Calcium (8.5-10.1) mg/dL Magnesium (1.8-2.4) mg/dL Total Bilirubin (0.2-1.0) mg/dL AST (15-37) U/L ALT (12-78) U/L Alkaline Phosphatase (46-116) U/L Total Protein (6.4-8.2) g/dL Albumin (3.4-5.0) g/dL Globulin (2.3-3.5) g/dL Albumin/Globulin Ratio (1.2-2.2) Urine Color Yellow (YELLOW) Urine Appearance Clear (CLEAR) Urine pH 5.5 (5.0-8.0) Ur Specific [place] 1.010 (1.008-1.030) Urine Protein Negative (NEGATIVE) mg/dL Urine Glucose (UA) Negative (NEGATIVE) mg/dL Urine Ketones Negative (NEGATIVE) mg/dL Urine Occult Blood Small H (NEGATIVE) Urine Nitrite Negative (NEGATIVE) Urine Bilirubin Negative (NEGATIVE) Urine Urobilinogen 0.2 (0.2-1.0) EU/dL Ur Leukocyte Esterase Negative (NEGATIVE) Urine RBC 0-5 (0-5) Urine WBC 0-5 (0-5) Ur Epithelial Cells Rare Amorphous Sediment Not seen Urine Bacteria Not seen Urine Mucus Not seen Salicylates (2.0-20.0) mg/dL Urine Opiates Screen Negative (NEGATIVE) Ur Oxycodone Screen Negative (NEGATIVE) Urine Methadone Screen Negative (NEGATIVE) Ur Propoxyphene Screen Negative (NEGATIVE) Acetaminophen (10.0-30.0) ug/mL Ur Barbiturates Screen Negative (NEGATIVE) Ur Tricyclics Screen Negative (NEGATIVE) Ur Phencyclidine Scrn Negative (NEGATIVE) Ur Amphetamine Screen Negative (NEGATIVE) U Methamphetamines Scrn Negative (NEGATIVE) Urine MDMA Screen Negative (NEGATIVE) U Benzodiazepines Scrn Negative (NEGATIVE) U Cocaine Metab Screen Negative (NEGATIVE) U Marijuana (THC) Screen Negative (NEGATIVE) Ethyl Alcohol 181 mg/dL 06/13/20 06/13/20 06/13/20 Range/Units 02:15 02:15 02:15 WBC 6.7 (4.5-11.0) K/uL RBC 4.23 (3.30-5.50) M/uL Hgb 12.6 (12.0-15.0) g/dL Hct 39.2 (36.0-48.0) % MCV 93 (80-98) fL MCH 30 (27-31) pg MCHC 32 (32-36) % Plt Count 324 (150-400) K/uL Neut % (Auto) 63 (36-66) % Lymph % (Auto) 25 (24-44) % [place] % (Auto) 8 H (2-6) % Eos % (Auto) 4 (2-4) % Baso % (Auto) 1 (0-1) % PT 10.5 (9.5-12.0) sec INR 0.96 (0.80-1.20) Sodium 142 (140-148) mmol/L Potassium 3.7 (3.6-5.2) mmol/L Chloride 107 (100-108) mmol/L Carbon Dioxide 23 (21-32) mmol/L Anion Gap 11.8 (5.0-14.0) mmol/L BUN 12 (7-18) mg/dL Creatinine 0.9 (0.6-1.0) mg/dL Est Cr Clr Drug Dosing TNP Estimated GFR (MDRD) > 60 (>60) Glucose 130 H (74-106) mg/dL Calcium 8.4 L (8.5-10.1) mg/dL Magnesium 2.0 (1.8-2.4) mg/dL Total Bilirubin 0.2 (0.2-1.0) mg/dL AST 18 (15-37) U/L ALT 23 (12-78) U/L Alkaline Phosphatase 95 (46-116) U/L Total Protein 6.2 L (6.4-8.2) g/dL Albumin 3.3 L (3.4-5.0) g/dL Globulin 2.9 (2.3-3.5) g/dL Albumin/Globulin Ratio 1.1 L (1.2-2.2) Urine Color (YELLOW) Urine Appearance (CLEAR) Urine pH (5.0-8.0) Ur Specific [place] (1.008-1.030) Urine Protein (NEGATIVE) mg/dL Urine Glucose (UA) (NEGATIVE) mg/dL Urine Ketones (NEGATIVE) mg/dL Urine Occult Blood (NEGATIVE) Urine Nitrite (NEGATIVE) Urine Bilirubin (NEGATIVE) Urine Urobilinogen (0.2-1.0) EU/dL Ur Leukocyte Esterase (NEGATIVE) Urine RBC (0-5) Urine WBC (0-5) Ur Epithelial Cells Amorphous Sediment Urine Bacteria Urine Mucus Salicylates (2.0-20.0) mg/dL Urine Opiates Screen (NEGATIVE) Ur Oxycodone Screen (NEGATIVE) Urine Methadone Screen (NEGATIVE) Ur Propoxyphene Screen (NEGATIVE) Acetaminophen (10.0-30.0) ug/mL Ur Barbiturates Screen (NEGATIVE) Ur Tricyclics Screen (NEGATIVE) Ur Phencyclidine Scrn (NEGATIVE) Ur Amphetamine Screen (NEGATIVE) U Methamphetamines Scrn (NEGATIVE) Urine MDMA Screen (NEGATIVE) U Benzodiazepines Scrn (NEGATIVE) U Cocaine Metab Screen (NEGATIVE) U Marijuana (THC) Screen (NEGATIVE) Ethyl Alcohol mg/dL 06/13/20 06/13/20 Range/Units 02:15 02:15 WBC (4.5-11.0) K/uL RBC (3.30-5.50) M/uL Hgb (12.0-15.0) g/dL Hct (36.0-48.0) % MCV (80-98) fL MCH (27-31) pg MCHC (32-36) % Plt Count (150-400) K/uL Neut % (Auto) (36-66) % Lymph % (Auto) (24-44) % [place] % (Auto) (2-6) % Eos % (Auto) (2-4) % Baso % (Auto) (0-1) % PT (9.5-12.0) sec INR (0.80-1.20) Sodium (140-148) mmol/L Potassium (3.6-5.2) mmol/L Chloride (100-108) mmol/L Carbon Dioxide (21-32) mmol/L Anion Gap (5.0-14.0) mmol/L BUN (7-18) mg/dL Creatinine (0.6-1.0) mg/dL Est Cr Clr Drug Dosing Estimated GFR (MDRD) (>60) Glucose (74-106) mg/dL Calcium (8.5-10.1) mg/dL Magnesium (1.8-2.4) mg/dL Total Bilirubin (0.2-1.0) mg/dL AST (15-37) U/L ALT (12-78) U/L Alkaline Phosphatase (46-116) U/L Total Protein (6.4-8.2) g/dL Albumin (3.4-5.0) g/dL Globulin (2.3-3.5) g/dL Albumin/Globulin Ratio (1.2-2.2) Urine Color (YELLOW) Urine Appearance (CLEAR) Urine pH (5.0-8.0) Ur Specific [place] (1.008-1.030) Urine Protein (NEGATIVE) mg/dL Urine Glucose (UA) (NEGATIVE) mg/dL Urine Ketones (NEGATIVE) mg/dL Urine Occult Blood (NEGATIVE) Urine Nitrite (NEGATIVE) Urine Bilirubin (NEGATIVE) Urine Urobilinogen (0.2-1.0) EU/dL Ur Leukocyte Esterase (NEGATIVE) Urine RBC (0-5) Urine WBC (0-5) Ur Epithelial Cells Amorphous Sediment Urine Bacteria Urine Mucus Salicylates 1.3 L (2.0-20.0) mg/dL Urine Opiates Screen (NEGATIVE) Ur Oxycodone Screen (NEGATIVE) Urine Methadone Screen (NEGATIVE) Ur Propoxyphene Screen (NEGATIVE) Acetaminophen 0.0 L (10.0-30.0) ug/mL Ur Barbiturates Screen (NEGATIVE) Ur Tricyclics Screen (NEGATIVE) Ur Phencyclidine Scrn (NEGATIVE) Ur Amphetamine Screen (NEGATIVE) U Methamphetamines Scrn (NEGATIVE) Urine MDMA Screen (NEGATIVE) U Benzodiazepines Scrn (NEGATIVE) U Cocaine Metab Screen (NEGATIVE) U Marijuana (THC) Screen (NEGATIVE) Ethyl Alcohol mg/dL Result Diagrams: 06/13/20 02:15 06/13/20 02:15 Sepsis Event Note - Evaluation Sepsis Screening Result: No Definite Risk - Focused Exam Vital Signs: Vital Signs Temp Pulse Resp BP Pulse Ox 06/13/20 04:25 91 15 144/87 H 93 L 06/13/20 03:29 92 16 108/70 91 L 06/13/20 02:29 90 17 91/51 L 91 L 06/13/20 01:50 97.8 F 89 12 113/64 92 L Date Exam was Performed: 06/13/20 Time Exam was Performed: 06:19 *Q Meaningful Use (ADM) - VTE Risk Assess *Q Each Risk Factor Represents 1 Point: Obesity ( BMI > 25 kg/m2), Abnormal Pulmonary Function (COPD) Total Score 1 Point Risk Factors: 2 Each Risk Factor Represents 2 Points: Age 60 - 74 Years Total Score 2 Point Risk Factors: 2 Each Risk Factor Represents 3 Points: None Total Score 3 Point Risk Factors: 0 Each Risk Factor Represents 5 Points: None Total Score 5 Point Risk Factors: 0 Venous Thromboembolism Risk Factor Score *Q: 4 Problem List Initiated/Reviewed/Updated: Yes Orders Last 24hrs: Active Orders 24 hr Category Date Time Status Patient Status [ADT] Routine ADT 06/13/20 06:11 Active Ambulate [RC] QID Care 06/13/20 06:11 Active Cardiac Monitoring [RC] .As Directed Care 06/13/20 06:11 Active Height and Weight [RC] DAILY Care 06/13/20 06:11 Active Intake and Output [RC] QSHIFT Care 06/13/20 06:11 Active Notify Provider Vital Signs [RC] ASDIRECTED Care 06/13/20 06:11 Active Oxygen Therapy [RC] PRN Care 06/13/20 06:11 Active Peripheral IV Care [RC] . DIRECTED Care 06/13/20 06:11 Active Pulse Oximetry [RC] CONTINUOUS Care 06/13/20 06:11 Active Up With Assistance [RC] ASDIRECTED Care 06/13/20 06:11 Active Up to Chair [RC] QID Care 06/13/20 06:11 Active VTE/DVT Education [RC] Per Unit Routine Care 06/13/20 06:11 Active Vital Signs [RC] Q4H Care 06/13/20 06:11 Active Nothing per Oral Now Diet [DIET] Diet 06/13/20 Breakfast Active BASIC METABOLIC PANEL,BMP [CHEM] AM Lab 06/14/20 05:11 Ordered CBC WITH AUTO DIFF [HEME] AM Lab 06/14/20 05:11 Ordered Acetaminophen [Tylenol] Med 06/13/20 06:11 Ordered 650 mg PO Q4H PRN Enoxaparin [Lovenox] Med 06/13/20 06:11 Ordered 40 mg SUBCUT DAILY Fluticasone Propion/Salmeterol [Advair 250-50 Diskus] Med 06/13/20 09:00 Ordered 1 dose IH BID Ondansetron [Zofran] Med 06/13/20 06:11 Ordered 4 mg IV Q4H PRN Sodium Chloride 0.9% [Normal Saline] 1,000 ml Med 06/13/20 06:11 Ordered IV ASDIRECTED Sodium Chloride 0.9% [Saline Flush] Med 06/13/20 06:11 Ordered 10 ml FLUSH ASDIRECTED PRN Tiotropium [Spiriva Handihaler] Med 06/13/20 09:00 Ordered 2 puff IH DAILY amLODIPine [Norvasc] Med 06/13/20 09:00 Ordered 5 mg PO DAILY atorvaSTATin [Lipitor] Med 06/13/20 09:00 Ordered 20 mg PO DAILY polyethylene glycoL 3350 [MiraLAX] Med 06/13/20 06:11 Ordered 17 gm PO DAILY PRN Peripheral IV Insertion Adult [OM.PC] Routine Oth 06/13/20 06:11 Ordered Resuscitation Status Routine Resus Stat 06/13/20 05:38 Ordered EKG 12 Lead [EK] Urgent Ther 06/13/20 02:09 Stop Req Medication Orders Acetaminophen (Tylenol) 650 mg PO Q4H PRN PRN Reason: Pain (Mild 1-3)/fever Amlodipine Besylate (Norvasc) 5 mg PO DAILY [facility] Atorvastatin Calcium (Lipitor) 20 mg PO DAILY [facility] Enoxaparin Sodium (Lovenox) 40 mg SUBCUT DAILY [facility] Sodium Chloride (Normal Saline) 1,000 mls @ 125 mls/hr IV ASDIRECTED [facility] Non-Formulary Medication (Fluticasone Propion/Salmeterol [Advair 250-50 Diskus]) 1 dose IH BID [facility] Non-Formulary Medication (Tiotropium [Spiriva Handihaler]) 2 puff IH DAILY [facility] Ondansetron HCl (Zofran) 4 mg IV Q4H PRN PRN Reason: Nausea/Vomiting Polyethylene Glycol (Miralax) 17 gm PO DAILY PRN PRN Reason: Constipation Sodium Chloride (Saline Flush) 10 ml FLUSH ASDIRECTED PRN PRN Reason: Keep Vein Open Assessment/Plan Comment:: ASSESSMENT AND PLAN DRUG OVERDOSE/SUICIDE ATTEMPT-last night was intoxicated and became frustrated with family members. She took an overdose of Paxil, in addition to the alcohol intoxication -Monitor in ICU -Crisis team assessment later today COPD-stable with no evidence of acute exacerbation -Continue outpatient medical therapy MAINTENANCE ISSUES -DVT prophylaxis; Lovenox 40 mg subcu daily -GI prophylaxis; not indicated -Viveros catheter; not indicated -Nutrition; n.p.o. -Nicotine dependence; not required CODE STATUS-FULL CODE ADMISSION STATUS-patient will be admitted to inpatient status, expect at least a 2 night hospital stay for evaluation and management of problems as outlined above. At the time of this admission I do not reasonably expected evaluation and management of this problem will require more than a 96 hour hospital stay. DISPOSITION-anticipate discharge to home after the hospital stay. PRIMARY CARE PROVIDER- - Mortality Measure Prognosis:: Good
[2020-06-13] MEDS: Sodium Chloride 0.9% 1,000 ML IV SCH ×3 (06:36→21:17)
[2020-06-13] MEDS ORDERED: Glycopyrrolate 15.6 MCG Cap.W.Dev Kit of 6 IH SCH (07:00)
[2020-06-13] MEDS: Fluticasone-Salmeterol 113-14 MCG Powder Inhalant INH SCH ×2 (08:03→21:07)
[2020-06-13] MEDS: Glycopyrrolate 15.6 MCG Cap.W.Dev Kit of 6 IH SCH ×2 (08:03→21:07)
[2020-06-13] MEDS: atorvaSTATin 20 MG Tab PO SCH (08:12)
[2020-06-13] MEDS: amLODIPine 5 MG Tab PO SCH (08:12)
[2020-06-13] MEDS: Enoxaparin 40 MG/0.4 ML Syringe SUBCUT SCH (08:13)
[2020-06-13] MEDS ORDERED: Fluticasone-Salmeterol 113-14 MCG Powder Inhalant INH SCH (09:00)
[2020-06-13] MEDS: Acetaminophen 325 MG Tab PO PRN (09:19)
[2020-06-13] MEDS ORDERED: Gabapentin 400 MG Cap PO ONE (14:45)
[2020-06-13] MEDS ORDERED: Gabapentin 100 MG Cap PO ONE (14:45)
[2020-06-13] MEDS: LORazepam 2 MG/ML SDV IV PRN ×7 (14:50→23:58)
[2020-06-13] MEDS: Thiamine 100 MG Tab PO SCH ×2 (19:10→21:07)
[2020-06-13] MEDS: Gabapentin 400 MG Cap PO SCH (21:17)
[2020-06-14] MEDS: LORazepam 2 MG/ML SDV IV PRN ×6 (03:54→20:51)
[2020-06-14] MEDS: Sodium Chloride 0.9% 1,000 ML IV SCH (05:09)
[2020-06-14] MEDS: Gabapentin 400 MG Cap PO SCH ×3 (06:05→22:00)
[2020-06-14] MEDS: Fluticasone-Salmeterol 113-14 MCG Powder Inhalant INH SCH ×2 (07:36→20:52)
[2020-06-14] MEDS: Glycopyrrolate 15.6 MCG Cap.W.Dev Kit of 6 IH SCH ×2 (07:36→20:54)
[2020-06-14] MEDS ORDERED: Albuterol 0.083% 2.5 MG/3 ML Neb Soln NEB PRN (09:11)
[2020-06-14] MEDS ORDERED: Sodium Chloride 0.9% 1,000 ML IV SCH (09:12)
--- NOTE | 2020-06-14 09:14 | PCM.PN ---
- General Info Date of Service: 06/14/20 Subjective Update: No acute events overnight. Patient has received several doses of IV lorazepam to help manage her alcohol withdrawal. She is somewhat alert and somewhat interactive but provides minimal history as far as how she is feeling right now. She is able to tell me that she is not having any pain. For the most part she mumbles incoherently. Vital signs have been stable. She is quite tremulous when she tries to move around. She has been restless when she has been in bed. Laboratory studies are fairly unremarkable. Functional Status: Reports: Pain Controlled - Review of Systems General: Denies: Fever Neurological: Reports: Confusion, Tremors - Patient Data Vitals - Most Recent: Last Vital Signs Temp 36.6 C 06/14/20 07:00 Pulse 83 06/14/20 08:00 Resp 14 06/14/20 08:00 BP 112/57 L 06/14/20 08:00 Pulse Ox 93 L 06/14/20 08:00 Weight - Most Recent: 91.852 kg I&O - Last 24 Hours: Intake & Output 06/13/20 06/14/20 06/14/20 22:59 06:59 14:59 Intake Total 1469 1176 Balance 1469 1176 Lab Results Last 24 Hours: Laboratory Results - last 24 hr 06/14/20 06/14/20 Range/Units 05:35 05:35 WBC 11.4 H (4.5-11.0) K/uL RBC 4.35 (3.30-5.50) M/uL Hgb 13.1 (12.0-15.0) g/dL Hct 40.9 (36.0-48.0) % MCV 94 (80-98) fL MCH 30 (27-31) pg MCHC 32 (32-36) % Plt Count 350 (150-400) K/uL Neut % (Auto) 78 H (36-66) % Lymph % (Auto) 11 L (24-44) % [place] % (Auto) 10 H (2-6) % Eos % (Auto) 1 L (2-4) % Baso % (Auto) 0 (0-1) % Sodium 141 (140-148) mmol/L Potassium 4.0 (3.6-5.2) mmol/L Chloride 107 (100-108) mmol/L Carbon Dioxide 25 (21-32) mmol/L Anion Gap 9.2 (5.0-14.0) mmol/L BUN 13 (7-18) mg/dL Creatinine 1.0 (0.6-1.0) mg/dL Est Cr Clr Drug Dosing 41.99 mL/min Estimated GFR (MDRD) 55 L (>60) Glucose 118 H (74-106) mg/dL Calcium 8.5 (8.5-10.1) mg/dL Med Orders - Current: Current Medications Acetaminophen (Tylenol) 650 mg PO Q4H PRN PRN Reason: Pain (Mild 1-3)/fever Last Admin: 06/13/20 09:19 Dose: 650 mg Documented by: Albuterol (Proventil Neb Soln) 2.5 mg NEB QIDRT [facility] Albuterol (Proventil Neb Soln) 2.5 mg NEB Q4H PRN PRN Reason: shortness of breath/wheezing Amlodipine Besylate (Norvasc) 5 mg PO DAILY [facility] Last Admin: 06/13/20 08:12 Dose: 5 mg Documented by: Atorvastatin Calcium (Lipitor) 20 mg PO DAILY [facility] Last Admin: 06/13/20 08:12 Dose: 20 mg Documented by: Enoxaparin Sodium (Lovenox) 40 mg SUBCUT DAILY [facility] Last Admin: 06/13/20 08:13 Dose: 40 mg Documented by: Folic Acid (Folic Acid) 1 mg PO DAILY [facility] Gabapentin (Neurontin) 400 mg PO Q8H [facility] Stop: 06/17/20 22:01 Last Admin: 06/14/20 06:05 Dose: Not Given Documented by: Glycopyrrolate (Seebri Neohaler) 15.6 mcg IH BIDRT [facility] Last Admin: 06/14/20 07:36 Dose: 15.6 mcg Documented by: Sodium Chloride (Normal Saline) 1,000 mls @ 125 mls/hr IV ASDIRECTED [facility] Last Admin: 06/14/20 05:09 Dose: 125 mls/hr Documented by: Lorazepam (Ativan) 0 mg IV ASDIRECTED PRN; Protocol PRN Reason: ETOH WITHDRAWAL Last Admin: 06/14/20 03:54 Dose: 2 mg Documented by: Ondansetron HCl (Zofran) 4 mg IV Q4H PRN PRN Reason: Nausea/Vomiting Last Admin: 06/13/20 09:20 Dose: 4 mg Documented by: Polyethylene Glycol (Miralax) 17 gm PO DAILY PRN PRN Reason: Constipation Fluticasone/Salmeterol (Fluticasone-Salmeterol 113-14 Mcg Powder Inh) 1 puff INH BIDRT [facility] Last Admin: 06/14/20 07:36 Dose: 1 puff Documented by: Sodium Chloride (Saline Flush) 10 ml FLUSH ASDIRECTED PRN PRN Reason: Keep Vein Open Thiamine HCl (Vitamin B-1) 100 mg PO BEDTIME [facility] Last Admin: 06/13/20 21:07 Dose: Not Given Documented by: Discontinued Medications Gabapentin (Neurontin) 400 mg PO ONETIME ONE Stop: 06/13/20 14:46 Last Admin: 06/13/20 14:50 Dose: 400 mg Documented by: Lactated Ringer's (Ringers, Lactated) 1,000 mls @ 125 mls/hr IV ASDIRECTED [facility] Last Admin: 06/13/20 02:49 Dose: 125 mls/hr Documented by: Sodium Chloride (Saline Flush) 10 ml FLUSH ASDIRECTED PRN PRN Reason: Keep Vein Open - Exam Quality Assessment: Supplemental Oxygen General: Alert, Cooperative, No Acute Distress. No: Oriented Neck: Supple Lungs: Normal Respiratory Effort, Decreased Breath Sounds (throughout ), Wheezing (mild left side) Cardiovascular: Regular Rate, Regular Rhythm GI/Abdominal Exam: Soft, Non-Tender, No Distention Extremities: No Pedal Edema. No: Increased Warmth Skin: Warm, Dry Psy/Mental Status: Alert, Agitated Sepsis Event Note - Evaluation Sepsis Screening Result: No Definite Risk - Focused Exam Vital Signs: Vital Signs Temp Pulse Resp BP Pulse Ox 06/14/20 08:00 83 14 112/57 L 93 L 06/14/20 07:00 36.6 C 82 20 112/70 93 L 06/14/20 06:00 84 23 H 98/61 93 L 06/14/20 05:00 84 20 118/57 L 94 L 06/14/20 04:00 37.0 C 84 19 112/63 93 L 06/14/20 03:00 84 20 97/49 L 93 L 06/14/20 02:00 84 19 116/65 94 L 06/14/20 01:00 85 22 H 103/59 L 93 L 06/14/20 00:00 36.9 C 85 19 96/76 93 L 06/13/20 23:00 87 15 99/73 92 L 06/13/20 22:00 85 19 103/61 95 Date Exam was Performed: 06/14/20 Time Exam was Performed: 13:30 - Problem List Review Problem List Initiated/Reviewed/Updated: Yes - My Orders Last 24 Hours: My Active Orders 06/14/20 09:11 RT Aerosol Therapy [RC] ASDIRECTED Albuterol [Proventil Neb Soln] 2.5 mg NEB Q4H PRN 06/14/20 09:12 Sodium Chloride 0.9% [Normal Saline] 1,000 ml IV ASDIRECTED 06/14/20 09:15 LORazepam [Ativan] See Protocol PO ASDIRECTED 06/14/20 11:00 Albuterol [Proventil Neb Soln] 2.5 mg NEB QIDRT 06/15/20 05:00 BASIC METABOLIC PANEL,BMP [CHEM] Timed CBC W/O DIFF,HEMOGRAM [HEME] Timed (1) - Plan Plan:: ASSESSMENT AND PLAN DRUG OVERDOSE/SUICIDE ATTEMPT-no obvious adverse reaction from the SSRI overdose/suicide attempt. Patient is not able to discuss mood at this time because of her alcohol withdrawal as discussed below. -Monitor in ICU -Crisis team assessment after her alcohol withdrawal is complete. ALCOHOL ABUSE WITH DELIRIUM TREMENS-obvious evidence for alcohol withdrawal with tremor, confusion. Vitals are stable so far. Labs unremarkable for the most part. -CIWA protocol with lorazepam -Scheduled gabapentin -Melatonin at bedtime -Supplement thiamine and folate -Discussion about treatment after she has cleared COPD-stable with no evidence of acute exacerbation -Continue outpatient medical therapy MAINTENANCE ISSUES -DVT prophylaxis; Lovenox 40 mg subcu daily -GI prophylaxis; not indicated -Viveros catheter; not indicated -Nutrition; n.p.o. DISPOSITION-anticipate discharge to home after the hospital stay. cR Ruiz MD
[2020-06-14] MEDS: Enoxaparin 40 MG/0.4 ML Syringe SUBCUT SCH (09:55)
[2020-06-14] MEDS: Albuterol 0.083% 2.5 MG/3 ML Neb Soln NEB SCH ×3 (10:32→20:55)
[2020-06-14] MEDS: Folic Acid 1 MG Tab PO SCH (11:22)
[2020-06-14] MEDS: atorvaSTATin 20 MG Tab PO SCH (11:22)
[2020-06-14] MEDS: amLODIPine 5 MG Tab PO SCH (11:23)
[2020-06-14] MEDS: Thiamine 100 MG Tab PO SCH (20:57)
[2020-06-15] MEDS: LORazepam 2 MG/ML SDV IV PRN ×3 (03:56→23:01)
[2020-06-15] MEDS: Gabapentin 400 MG Cap PO SCH ×3 (06:00→21:02)
[2020-06-15] MEDS: Albuterol 0.083% 2.5 MG/3 ML Neb Soln NEB SCH ×4 (07:30→21:01)
[2020-06-15] MEDS: Glycopyrrolate 15.6 MCG Cap.W.Dev Kit of 6 IH SCH ×2 (07:30→20:45)
[2020-06-15] MEDS: Fluticasone-Salmeterol 113-14 MCG Powder Inhalant INH SCH ×2 (07:31→20:45)
--- NOTE | 2020-06-15 09:51 | PCM.PN ---
- General Info Date of Service: 06/15/20 Subjective Update: No acute events overnight. Still quite confused today and not able to participate in any sort of conversation. She received several doses of lorazepam yesterday and a couple overnight. Vital signs have been stable. Still tremulous with any sort of activity. - Review of Systems General: Denies: Fever Neurological: Reports: Confusion - Patient Data Vitals - Most Recent: Last Vital Signs Temp 36 C L 06/15/20 07:00 Pulse 86 06/15/20 09:00 Resp 18 06/15/20 09:00 BP 106/68 06/15/20 09:00 Pulse Ox 94 L 06/15/20 09:00 Weight - Most Recent: 91.852 kg I&O - Last 24 Hours: Intake & Output 06/14/20 06/15/20 06/15/20 22:59 06:59 14:59 Intake Total 900 593 Balance 900 593 Lab Results Last 24 Hours: Laboratory Results - last 24 hr 06/15/20 06/15/20 Range/Units 05:44 05:44 WBC 10.0 (4.5-11.0) K/uL RBC 4.36 (3.30-5.50) M/uL Hgb 13.0 (12.0-15.0) g/dL Hct 40.8 (36.0-48.0) % MCV 94 (80-98) fL MCH 30 (27-31) pg MCHC 32 (32-36) % Plt Count 315 (150-400) K/uL Sodium 139 L (140-148) mmol/L Potassium 3.6 (3.6-5.2) mmol/L Chloride 103 (100-108) mmol/L Carbon Dioxide 26 (21-32) mmol/L Anion Gap 13.6 (5.0-14.0) mmol/L BUN 12 (7-18) mg/dL Creatinine 0.8 (0.6-1.0) mg/dL Est Cr Clr Drug Dosing 52.49 mL/min Estimated GFR (MDRD) > 60 (>60) Glucose 107 H (74-106) mg/dL Calcium 8.7 (8.5-10.1) mg/dL Med Orders - Current: Current Medications Acetaminophen (Tylenol) 650 mg PO Q4H PRN PRN Reason: Pain (Mild 1-3)/fever Last Admin: 06/13/20 09:19 Dose: 650 mg Documented by: Albuterol (Proventil Neb Soln) 2.5 mg NEB QIDRT [facility] Last Admin: 06/15/20 07:30 Dose: 2.5 mg Documented by: Albuterol (Proventil Neb Soln) 2.5 mg NEB Q4H PRN PRN Reason: shortness of breath/wheezing Amlodipine Besylate (Norvasc) 5 mg PO DAILY [facility] Last Admin: 06/14/20 11:23 Dose: Not Given Documented by: Atorvastatin Calcium (Lipitor) 20 mg PO DAILY [facility] Last Admin: 06/14/20 11:22 Dose: Not Given Documented by: Enoxaparin Sodium (Lovenox) 40 mg SUBCUT DAILY [facility] Last Admin: 06/14/20 09:55 Dose: 40 mg Documented by: Folic Acid (Folic Acid) 1 mg PO DAILY [facility] Last Admin: 06/14/20 11:22 Dose: Not Given Documented by: Gabapentin (Neurontin) 400 mg PO Q8H [facility] Stop: 06/17/20 22:01 Last Admin: 06/15/20 06:00 Dose: Not Given Documented by: Glycopyrrolate (Seebri Neohaler) 15.6 mcg IH BIDRT [facility] Last Admin: 06/15/20 07:30 Dose: 15.6 mcg Documented by: Potassium Chloride/Dextrose/Sod Cl (D5 1/2 Ns W/ 20 Meq/L Kcl) 1,000 mls @ 75 mls/hr IV ASDIRECTED [facility] Lorazepam (Ativan) 0 mg IV ASDIRECTED PRN; Protocol PRN Reason: ETOH WITHDRAWAL Last Admin: 06/15/20 03:56 Dose: 2 mg Documented by: Lorazepam (Ativan) 0 mg PO ASDIRECTED PRN; Protocol PRN Reason: ETOH WITHDRAWAL Ondansetron HCl (Zofran) 4 mg IV Q4H PRN PRN Reason: Nausea/Vomiting Last Admin: 06/13/20 09:20 Dose: 4 mg Documented by: Polyethylene Glycol (Miralax) 17 gm PO DAILY PRN PRN Reason: Constipation Fluticasone/Salmeterol (Fluticasone-Salmeterol 113-14 Mcg Powder Inh) 1 puff INH BIDRT [facility] Last Admin: 06/15/20 07:31 Dose: 1 puff Documented by: Sodium Chloride (Saline Flush) 10 ml FLUSH ASDIRECTED PRN PRN Reason: Keep Vein Open Thiamine HCl (Vitamin B-1) 100 mg PO BEDTIME [facility] Last Admin: 06/14/20 20:57 Dose: Not Given Documented by: Discontinued Medications Gabapentin (Neurontin) 400 mg PO ONETIME ONE Stop: 06/13/20 14:46 Last Admin: 06/13/20 14:50 Dose: 400 mg Documented by: Lactated Ringer's (Ringers, Lactated) 1,000 mls @ 125 mls/hr IV ASDIRECTED [facility] Last Admin: 06/13/20 02:49 Dose: 125 mls/hr Documented by: Sodium Chloride (Normal Saline) 1,000 mls @ 125 mls/hr IV ASDIRECTED [facility] Last Admin: 06/14/20 05:09 Dose: 125 mls/hr Documented by: Sodium Chloride (Normal Saline) 1,000 mls @ 50 mls/hr IV ASDIRECTED [facility] Last Admin: 06/14/20 17:13 Dose: 50 mls/hr Documented by: Sodium Chloride (Saline Flush) 10 ml FLUSH ASDIRECTED PRN PRN Reason: Keep Vein Open - Exam Quality Assessment: Supplemental Oxygen General: No Acute Distress, Lethargic. No: Alert, Oriented HEENT: Pupils Equal Lungs: Normal Respiratory Effort, Wheezing (few left side ). No: Crackles Cardiovascular: Regular Rate, Regular Rhythm GI/Abdominal Exam: Normal Bowel Sounds, Soft, Non-Tender Extremities: No Pedal Edema. No: Increased Warmth Skin: Warm, Dry Psy/Mental Status: Agitated (mild). No: Alert Sepsis Event Note - Evaluation Sepsis Screening Result: No Definite Risk - Focused Exam Vital Signs: Vital Signs Temp Pulse Resp BP Pulse Ox 06/15/20 09:00 86 18 106/68 94 L 06/15/20 08:00 87 18 109/80 91 L 06/15/20 07:31 88 06/15/20 07:00 36 C L 22 H 116/79 91 L 06/15/20 06:00 18 119/53 L 93 L 06/15/20 05:00 16 105/67 92 L 06/15/20 04:00 36.8 C 20 110/72 93 L 06/15/20 03:00 16 93/72 92 L 06/15/20 02:00 18 99/50 L 93 L 06/15/20 00:00 37.0 C 16 146/80 H 92 L 06/14/20 23:00 16 114/72 92 L 06/14/20 22:00 20 119/56 L 92 L - Problem List Review Problem List Initiated/Reviewed/Updated: Yes - My Orders Last 24 Hours: My Active Orders 06/14/20 09:11 RT Aerosol Therapy [RC] ASDIRECTED Albuterol [Proventil Neb Soln] 2.5 mg NEB Q4H PRN 06/14/20 09:15 LORazepam [Ativan] See Protocol PO ASDIRECTED PRN 06/14/20 11:00 Albuterol [Proventil Neb Soln] 2.5 mg NEB QIDRT 06/15/20 09:45 D5 1/2 NS w/ 20 mEq/L KCl 1,000 ml IV ASDIRECTED 06/16/20 05:00 COMPREHENSIVE METABOLIC PN,CMP [CHEM] Timed - Plan Plan:: ASSESSMENT AND PLAN - ALCOHOL ABUSE WITH DELIRIUM TREMENS-ongoing withdrawal with mixed delirium at this time. Intermittently receiving doses of lorazepam. She is on gabapentin as well. -CIWA protocol with lorazepam -Scheduled gabapentin -Melatonin at bedtime -Supplement thiamine and folate -Discussion about treatment after she has cleared DRUG OVERDOSE/SUICIDE ATTEMPT-no obvious adverse reaction from the SSRI overdose/suicide attempt. Still delirious and not able to talk about her intent or treatment plan. -Monitor in ICU -Crisis team assessment after her alcohol withdrawal is complete. COPD-stable with no evidence of acute exacerbation -Continue outpatient medical therapy MAINTENANCE ISSUES -DVT prophylaxis; Lovenox 40 mg subcu daily -GI prophylaxis; not indicated -Viveros catheter; not indicated -Nutrition; n.p.o. until she is more awake and alert. Currently receiving nutritional support with dextrose containing IV fluids DISPOSITION-anticipate discharge to home after the hospital stay. Rc Ruiz MD
[2020-06-15] MEDS: D5 1/2 NS w/ 20 mEq/L KCl 1,000 ML IV SCH ×2 (10:05→23:02)
[2020-06-15] MEDS: Enoxaparin 40 MG/0.4 ML Syringe SUBCUT SCH (10:06)
[2020-06-15] MEDS: Folic Acid 1 MG Tab PO SCH (10:07)
[2020-06-15] MEDS: atorvaSTATin 20 MG Tab PO SCH (10:07)
[2020-06-15] MEDS: amLODIPine 5 MG Tab PO SCH (10:08)
[2020-06-15] MEDS: Thiamine 100 MG Tab PO SCH (21:01)
[2020-06-16] MEDS: LORazepam 2 MG/ML SDV IV PRN ×3 (01:19→09:17)
[2020-06-16] MEDS: Gabapentin 400 MG Cap PO SCH ×3 (06:08→21:16)
[2020-06-16] MEDS: Fluticasone-Salmeterol 113-14 MCG Powder Inhalant INH SCH ×2 (07:07→21:21)
[2020-06-16] MEDS: Albuterol 0.083% 2.5 MG/3 ML Neb Soln NEB SCH ×4 (07:07→21:25)
[2020-06-16] MEDS: Glycopyrrolate 15.6 MCG Cap.W.Dev Kit of 6 IH SCH ×2 (07:07→21:26)
--- NOTE | 2020-06-16 09:04 | CRLCR ---
INDICATION: Hypoxia. COMPARISON: None. TECHNIQUE: Chest. FINDINGS: Cardiac silhouette is mildly enlarged. Left basilar atelectasis/consolidation. Blunting of left costophrenic angle could be due to scarring or small pleural effusion. Right midlung opacity suspicious for infection/inflammation. Healed left rib fracture deformities. No significant pneumothorax. Atherosclerosis of the thoracic aorta. Healed right clavicle fracture deformity. IMPRESSION: 1. Right midlung opacity suspicious for infection/inflammation. 2. Mild cardiomegaly. 3. Left basilar atelectasis/consolidation. 4. Blunting of left costophrenic angle which could be due to scarring or small pleural effusion. 5. Healed right clavicle and left rib fracture deformities. Dictated by Pradip Foote MD @ Jun 16 2020 8:59AM Signed by Dr. Pradip Foote @ Jun 16 2020 9:03AM
--- NOTE | 2020-06-16 09:07 | PCM.PN ---
- General Info Date of Service: 06/16/20 Subjective Update: No acute events overnight. She did not require much lorazepam through the day yesterday but did require some again overnight. Still very confused and lethargic. Agitated at times but this is relatively mild. Still hypoxic. Still not able to provide any useful information when you talk to her. - Review of Systems General: Denies: Fever Neurological: Reports: Confusion, Tremors - Patient Data Vitals - Most Recent: Last Vital Signs Temp 37 C 06/16/20 07:00 Pulse 86 06/16/20 09:00 Resp 15 06/16/20 09:00 BP 150/76 H 06/16/20 09:00 Pulse Ox 97 06/16/20 09:00 Weight - Most Recent: 91.852 kg I&O - Last 24 Hours: Intake & Output 06/15/20 06/16/20 06/16/20 22:59 06:59 14:59 Intake Total 1768 Balance 1768 Lab Results Last 24 Hours: Laboratory Results - last 24 hr 06/16/20 Range/Units 05:30 Sodium 138 L (140-148) mmol/L Potassium 3.6 (3.6-5.2) mmol/L Chloride 103 (100-108) mmol/L Carbon Dioxide 28 (21-32) mmol/L Anion Gap 10.6 (5.0-14.0) mmol/L BUN 13 (7-18) mg/dL Creatinine 0.7 (0.6-1.0) mg/dL Est Cr Clr Drug Dosing 59.99 mL/min Estimated GFR (MDRD) > 60 (>60) Glucose 138 H (74-106) mg/dL Calcium 8.8 (8.5-10.1) mg/dL Total Bilirubin 0.8 D (0.2-1.0) mg/dL AST 24 (15-37) U/L ALT 22 (12-78) U/L Alkaline Phosphatase 96 (46-116) U/L Total Protein 7.1 (6.4-8.2) g/dL Albumin 3.3 L (3.4-5.0) g/dL Globulin 3.8 H (2.3-3.5) g/dL Albumin/Globulin Ratio 0.9 L (1.2-2.2) Med Orders - Current: Current Medications Acetaminophen (Tylenol) 650 mg PO Q4H PRN PRN Reason: Pain (Mild 1-3)/fever Last Admin: 06/13/20 09:19 Dose: 650 mg Documented by: Albuterol (Proventil Neb Soln) 2.5 mg NEB QIDRT [facility] Last Admin: 06/16/20 07:07 Dose: 2.5 mg Documented by: Albuterol (Proventil Neb Soln) 2.5 mg NEB Q4H PRN PRN Reason: shortness of breath/wheezing Amlodipine Besylate (Norvasc) 5 mg PO DAILY [facility] Last Admin: 06/15/20 10:08 Dose: Not Given Documented by: Atorvastatin Calcium (Lipitor) 20 mg PO DAILY [facility] Last Admin: 06/15/20 10:07 Dose: Not Given Documented by: Enoxaparin Sodium (Lovenox) 40 mg SUBCUT DAILY [facility] Last Admin: 06/15/20 10:06 Dose: 40 mg Documented by: Folic Acid (Folic Acid) 1 mg PO DAILY [facility] Last Admin: 06/15/20 10:07 Dose: Not Given Documented by: Gabapentin (Neurontin) 400 mg PO Q8H [facility] Stop: 06/17/20 22:01 Last Admin: 06/16/20 06:08 Dose: Not Given Documented by: Glycopyrrolate (Seebri Neohaler) 15.6 mcg IH BIDRT [facility] Last Admin: 06/16/20 07:07 Dose: 15.6 mcg Documented by: Potassium Chloride/Dextrose/Sod Cl (D5 1/2 Ns W/ 20 Meq/L Kcl) 1,000 mls @ 75 mls/hr IV ASDIRECTED [facility] Last Admin: 06/15/20 23:02 Dose: 75 mls/hr Documented by: Potassium Chloride 20 meq/Lidocaine HCl 2 ml/ Sodium Chloride 112 mls @ 50 mls/hr IV Q2H [facility] Stop: 06/16/20 13:59 Lorazepam (Ativan) 0 mg IV ASDIRECTED PRN; Protocol PRN Reason: ETOH WITHDRAWAL Last Admin: 06/16/20 07:26 Dose: 2 mg Documented by: Lorazepam (Ativan) 0 mg PO ASDIRECTED PRN; Protocol PRN Reason: ETOH WITHDRAWAL Ondansetron HCl (Zofran) 4 mg IV Q4H PRN PRN Reason: Nausea/Vomiting Last Admin: 06/13/20 09:20 Dose: 4 mg Documented by: Polyethylene Glycol (Miralax) 17 gm PO DAILY PRN PRN Reason: Constipation Fluticasone/Salmeterol (Fluticasone-Salmeterol 113-14 Mcg Powder Inh) 1 puff INH BIDRT [facility] Last Admin: 06/16/20 07:07 Dose: 1 puff Documented by: Sodium Chloride (Saline Flush) 10 ml FLUSH ASDIRECTED PRN PRN Reason: Keep Vein Open Thiamine HCl (Vitamin B-1) 100 mg PO BEDTIME [facility] Last Admin: 06/15/20 21:01 Dose: Not Given Documented by: Discontinued Medications Gabapentin (Neurontin) 400 mg PO ONETIME ONE Stop: 06/13/20 14:46 Last Admin: 06/13/20 14:50 Dose: 400 mg Documented by: Lactated Ringer's (Ringers, Lactated) 1,000 mls @ 125 mls/hr IV ASDIRECTED [facility] Last Admin: 06/13/20 02:49 Dose: 125 mls/hr Documented by: Sodium Chloride (Normal Saline) 1,000 mls @ 125 mls/hr IV ASDIRECTED [facility] Last Admin: 06/14/20 05:09 Dose: 125 mls/hr Documented by: Sodium Chloride (Normal Saline) 1,000 mls @ 50 mls/hr IV ASDIRECTED [facility] Last Admin: 06/14/20 17:13 Dose: 50 mls/hr Documented by: Sodium Chloride (Saline Flush) 10 ml FLUSH ASDIRECTED PRN PRN Reason: Keep Vein Open - Exam Quality Assessment: Supplemental Oxygen General: Mild Distress. No: Alert, Oriented, Cooperative Lungs: Crackles (few left lung base), Wheezing (mild right side). No: Normal Respiratory Effort (increased work of breathing) Cardiovascular: Regular Rate, Regular Rhythm GI/Abdominal Exam: Soft, No Distention Extremities: No Pedal Edema. No: Increased Warmth Skin: Warm, Dry Psy/Mental Status: Agitated. No: Alert Sepsis Event Note - Evaluation Sepsis Screening Result: No Definite Risk - Focused Exam Vital Signs: Vital Signs Temp Pulse Resp BP Pulse Ox 06/16/20 09:00 86 15 150/76 H 97 06/16/20 08:00 87 20 149/83 H 95 06/16/20 07:07 88 06/16/20 07:00 37 C 88 15 140/88 96 06/16/20 06:00 20 131/78 95 06/16/20 05:00 37.0 C 19 107/42 L 92 L 06/16/20 04:00 20 95 06/16/20 03:00 18 135/51 L 93 L 06/16/20 02:00 90 17 129/58 L 97 06/16/20 01:00 20 129/58 L 96 06/16/20 00:00 20 135/74 95 06/15/20 23:00 37 C 18 90/66 94 L 06/15/20 22:00 17 110/57 L 96 - Problem List Review Problem List Initiated/Reviewed/Updated: Yes - My Orders Last 24 Hours: My Active Orders 06/15/20 09:45 D5 1/2 NS w/ 20 mEq/L KCl 1,000 ml IV ASDIRECTED 06/16/20 09:04 methylPREDNISolone Sod Succ [Solu-MEDROL] 125 mg IVPUSH ONETIME ONE 06/16/20 09:05 Head wo Cont [CT] Routine 06/16/20 09:15 Levofloxacin/Dextrose 5%-Water [Levaquin in D5W 750 MG/150 ML] 750 mg Premix Bag 1 bag IV Q24H 06/16/20 10:00 Potassium Chloride 20 meq Lidocaine 1% [Xylocaine 1%] 2 ml Sodium Chloride 0.9% [Normal Saline] 100 ml IV Q2H 06/16/20 16:00 methylPREDNISolone Sod Succ [Solu-MEDROL] 62.5 mg IVPUSH Q8H 06/17/20 05:00 BASIC METABOLIC PANEL,BMP [CHEM] Timed CBC W/O DIFF,HEMOGRAM [HEME] Timed (1) - Plan Plan:: ASSESSMENT AND PLAN - ALCOHOL ABUSE WITH DELIRIUM TREMENS-ongoing withdrawal with mixed delirium at this time. Intermittently receiving doses of lorazepam. Head CT was unremarkable today. -WA protocol with lorazepam -Scheduled gabapentin -Melatonin at bedtime -Supplement thiamine and folate -Discussion about treatment after she has cleared BILATERAL PNEUMONIA-complicated by acute respiratory failure with hypoxia. Chest x-ray this morning did reveal a right midlung and left lower lung pneumonia. I suspect this has been present throughout the hospital stay because she has been hypoxic the entire time. I do not believe this is something she acquired while hospitalized. Infection could be contributing to her delirium. -Antibiotic coverage with levofloxacin -Steroids -Scheduled nebs -Supplement oxygen as needed DRUG OVERDOSE/SUICIDE ATTEMPT-no obvious adverse reaction from the SSRI overdose/suicide attempt. Still delirious and not able to talk about her intent or treatment plan. -Monitor in ICU -Crisis team assessment after her alcohol withdrawal is complete. COPD-there is some wheezing suggestive of an exacerbation related to her pneumonia. -Continue outpatient medical therapy MAINTENANCE ISSUES -DVT prophylaxis; enoxaparin -GI prophylaxis; not indicated -Viveros catheter; not indicated -Nutrition; n.p.o. until she is more awake and alert. Currently receiving nutritional support with dextrose containing IV fluids DISPOSITION-anticipate discharge to home after the hospital stay. Rc Ruiz MD
[2020-06-16] MEDS ORDERED: methylPREDNISolone Sodium Succinate 125 MG/2 ML SDV IVPUSH ONE (10:00)
[2020-06-16] MEDS: atorvaSTATin 20 MG Tab PO SCH (10:01)
[2020-06-16] MEDS: Folic Acid 1 MG Tab PO SCH (10:01)
[2020-06-16] MEDS: amLODIPine 5 MG Tab PO SCH (10:02)
[2020-06-16] MEDS: Enoxaparin 40 MG/0.4 ML Syringe SUBCUT SCH (10:03)
[2020-06-16] MEDS: Levofloxacin/Dextrose 5%-Water 750 MG in Premix Bag 1 BAG IV SCH (10:20)
[2020-06-16] MEDS: Potassium Chloride 20 MEQ, Lidocaine 1% 2 ML in Sodium Chloride 0.9% 100 ML IV SCH ×2 (10:28→12:39)
--- NOTE | 2020-06-16 10:36 | CRLCT ---
INDICATION: Persistent delirium. TECHNIQUE: CT head without contrast. COMPARISON: None. FINDINGS: CSF spaces: Within normal limits for age. Brain parenchyma: Mild periventricular and subcortical white matter hypoattenuation which is nonspecific but likely due to mild chronic small vessel ischemic changes. No sign of mass, hemorrhage, or midline shift. Skull base and calvarium: Mild sphenoid sinus mucosal thickening. Paranasal sinuses are otherwise unremarkable. The visualized orbits are grossly unremarkable. No skull fractures. IMPRESSION: Mild chronic small vessel ischemic changes. Otherwise no acute intracranial abnormality. Please note that all CT scans at this facility use dose modulation, iterative reconstruction, and/or weight-based dosing when appropriate to reduce radiation dose to as low as reasonably achievable. Dictated by Pradip Foote MD @ Jun 16 2020 10:27AM Signed by Dr. Pradip Foote @ Jun 16 2020 10:35AM
[2020-06-16] MEDS: D5 1/2 NS w/ 20 mEq/L KCl 1,000 ML IV SCH (12:56)
[2020-06-16] MEDS: methylPREDNISolone Sodium Succinate 125 MG/2 ML SDV IVPUSH SCH (16:50)
[2020-06-16] MEDS: Thiamine 100 MG Tab PO SCH (21:15)
[2020-06-17] MEDS: methylPREDNISolone Sodium Succinate 125 MG/2 ML SDV IVPUSH SCH ×3 (00:31→15:55)
[2020-06-17] MEDS: D5 1/2 NS w/ 20 mEq/L KCl 1,000 ML IV SCH ×2 (02:19→17:03)
[2020-06-17] MEDS: Gabapentin 400 MG Cap PO SCH ×2 (06:00→13:31)
[2020-06-17] MEDS: Glycopyrrolate 15.6 MCG Cap.W.Dev Kit of 6 IH SCH ×2 (07:07→21:41)
[2020-06-17] MEDS: Fluticasone-Salmeterol 113-14 MCG Powder Inhalant INH SCH ×2 (07:07→21:41)
[2020-06-17] MEDS: Albuterol 0.083% 2.5 MG/3 ML Neb Soln NEB SCH ×4 (07:07→21:41)
--- NOTE | 2020-06-17 09:13 | PCM.PN ---
- General Info Date of Service: 06/17/20 Subjective Update: There were no acute events overnight. Patient is somewhat more alert and interactive today. She is able to speak in full sentences though there is still some mumbling. She has not required any lorazepam since yesterday afternoon. Still tremulous with any sort of movement. Oxygenation has improved and she is down to 2 L of supplemental oxygen. She has not been coughing much. Quite weak. No fevers. - Review of Systems General: Reports: Weakness. Denies: Fever Neurological: Reports: Confusion - Patient Data Vitals - Most Recent: Last Vital Signs Temp 37.1 C 06/17/20 07:00 Pulse 91 06/17/20 07:08 Resp 20 06/17/20 07:00 BP 132/87 06/17/20 07:00 Pulse Ox 93 L 06/17/20 07:00 Weight - Most Recent: 91.852 kg I&O - Last 24 Hours: Intake & Output 06/16/20 06/17/20 06/17/20 22:59 06:59 14:59 Intake Total 895 Output Total 550 Balance 345 Lab Results Last 24 Hours: Laboratory Results - last 24 hr 06/17/20 06/17/20 Range/Units 05:20 05:20 WBC 6.9 (4.5-11.0) K/uL RBC 4.45 (3.30-5.50) M/uL Hgb 13.1 (12.0-15.0) g/dL Hct 41.4 (36.0-48.0) % MCV 93 (80-98) fL MCH 29 (27-31) pg MCHC 32 (32-36) % Plt Count 313 (150-400) K/uL Sodium 138 L (140-148) mmol/L Potassium 4.2 (3.6-5.2) mmol/L Chloride 106 (100-108) mmol/L Carbon Dioxide 24 (21-32) mmol/L Anion Gap 12.2 (5.0-14.0) mmol/L BUN 18 (7-18) mg/dL Creatinine 0.7 (0.6-1.0) mg/dL Est Cr Clr Drug Dosing 59.99 mL/min Estimated GFR (MDRD) > 60 (>60) Glucose 201 H (74-106) mg/dL Calcium 9.3 (8.5-10.1) mg/dL Med Orders - Current: Current Medications Acetaminophen (Tylenol) 650 mg PO Q4H PRN PRN Reason: Pain (Mild 1-3)/fever Last Admin: 06/13/20 09:19 Dose: 650 mg Documented by: Albuterol (Proventil Neb Soln) 2.5 mg NEB QIDRT [facility] Last Admin: 06/17/20 07:07 Dose: 2.5 mg Documented by: Albuterol (Proventil Neb Soln) 2.5 mg NEB Q4H PRN PRN Reason: shortness of breath/wheezing Amlodipine Besylate (Norvasc) 5 mg PO DAILY [facility] Last Admin: 06/16/20 10:02 Dose: Not Given Documented by: Atorvastatin Calcium (Lipitor) 20 mg PO DAILY [facility] Last Admin: 06/16/20 10:01 Dose: Not Given Documented by: Enoxaparin Sodium (Lovenox) 40 mg SUBCUT DAILY [facility] Last Admin: 06/16/20 10:03 Dose: 40 mg Documented by: Folic Acid (Folic Acid) 1 mg PO DAILY [facility] Last Admin: 06/16/20 10:01 Dose: Not Given Documented by: Gabapentin (Neurontin) 400 mg PO Q8H [facility] Stop: 06/17/20 22:01 Last Admin: 06/17/20 06:00 Dose: 400 mg Documented by: Glycopyrrolate (Seebri Neohaler) 15.6 mcg IH BIDRT [facility] Last Admin: 06/17/20 07:07 Dose: 15.6 mcg Documented by: Potassium Chloride/Dextrose/Sod Cl (D5 1/2 Ns W/ 20 Meq/L Kcl) 1,000 mls @ 75 mls/hr IV ASDIRECTED [facility] Last Admin: 06/17/20 02:19 Dose: 75 mls/hr Documented by: Levofloxacin/Dextrose 750 mg/ (Premix) 150 mls @ 100 mls/hr IV Q24H [facility] Last Admin: 06/16/20 10:20 Dose: 100 mls/hr Documented by: Lorazepam (Ativan) 0 mg IV ASDIRECTED PRN; Protocol PRN Reason: ETOH WITHDRAWAL Last Admin: 06/16/20 09:17 Dose: 2 mg Documented by: Lorazepam (Ativan) 0 mg PO ASDIRECTED PRN; Protocol PRN Reason: ETOH WITHDRAWAL Methylprednisolone Sodium Succinate (Solu-Medrol) 62.5 mg IVPUSH Q8H [facility] Last Admin: 06/17/20 07:47 Dose: 62.5 mg Documented by: Ondansetron HCl (Zofran) 4 mg IV Q4H PRN PRN Reason: Nausea/Vomiting Last Admin: 06/13/20 09:20 Dose: 4 mg Documented by: Polyethylene Glycol (Miralax) 17 gm PO DAILY PRN PRN Reason: Constipation Fluticasone/Salmeterol (Fluticasone-Salmeterol 113-14 Mcg Powder Inh) 1 puff INH BIDRT [facility] Last Admin: 06/17/20 07:07 Dose: 1 puff Documented by: Sodium Chloride (Saline Flush) 10 ml FLUSH ASDIRECTED PRN PRN Reason: Keep Vein Open Thiamine HCl (Vitamin B-1) 100 mg PO BEDTIME [facility] Last Admin: 06/16/20 21:15 Dose: 100 mg Documented by: Discontinued Medications Gabapentin (Neurontin) 400 mg PO ONETIME ONE Stop: 06/13/20 14:46 Last Admin: 06/13/20 14:50 Dose: 400 mg Documented by: Lactated Ringer's (Ringers, Lactated) 1,000 mls @ 125 mls/hr IV ASDIRECTED [facility] Last Admin: 06/13/20 02:49 Dose: 125 mls/hr Documented by: Sodium Chloride (Normal Saline) 1,000 mls @ 125 mls/hr IV ASDIRECTED [facility] Last Admin: 06/14/20 05:09 Dose: 125 mls/hr Documented by: Sodium Chloride (Normal Saline) 1,000 mls @ 50 mls/hr IV ASDIRECTED [facility] Last Admin: 06/14/20 17:13 Dose: 50 mls/hr Documented by: Potassium Chloride 20 meq/Lidocaine HCl 2 ml/ Sodium Chloride 112 mls @ 50 mls/hr IV Q2H [facility] Stop: 06/16/20 13:59 Last Admin: 06/16/20 12:39 Dose: 50 mls/hr Documented by: Methylprednisolone Sodium Succinate (Solu-Medrol) 125 mg IVPUSH ONETIME ONE Stop: 06/16/20 10:01 Last Admin: 06/16/20 10:23 Dose: 125 mg Documented by: Sodium Chloride (Saline Flush) 10 ml FLUSH ASDIRECTED PRN PRN Reason: Keep Vein Open - Exam Quality Assessment: Supplemental Oxygen General: Alert, Cooperative, No Acute Distress HEENT: No: Mucous Membr. Moist/Whiteash (dry) Neck: Supple Lungs: Normal Respiratory Effort, Decreased Breath Sounds (both bases), Crackles (rare left lung base) Cardiovascular: Regular Rate, Regular Rhythm GI/Abdominal Exam: Normal Bowel Sounds, Soft, No Distention Extremities: No Pedal Edema. No: Increased Warmth Skin: Warm, Dry Psy/Mental Status: Alert, Normal Affect Sepsis Event Note - Evaluation Sepsis Screening Result: No Definite Risk - Focused Exam Vital Signs: Vital Signs Temp Pulse Resp BP Pulse Ox Pulse Ox 06/17/20 07:08 91 06/17/20 07:00 37.1 C 94 20 132/87 93 L 06/17/20 06:00 90 18 148/82 H 94 L 06/17/20 05:12 94 L 06/17/20 05:00 90 18 136/80 94 L 06/17/20 04:00 36.7 C 87 15 153/76 H 95 06/17/20 03:00 86 14 152/82 H 94 L 06/17/20 02:00 85 15 140/59 L 94 L 06/17/20 01:00 86 14 140/68 96 06/16/20 23:54 36.3 C 88 15 157/86 H 96 06/16/20 23:00 87 15 150/82 H 96 06/16/20 22:00 88 18 102/81 98 - Problem List Review Problem List Initiated/Reviewed/Updated: Yes - My Orders Last 24 Hours: My Active Orders 06/16/20 10:00 Levofloxacin/Dextrose 5%-Water [Levaquin in D5W 750 MG/150 ML] 750 mg Premix Bag 1 bag IV Q24H 06/16/20 16:00 methylPREDNISolone Sod Succ [Solu-MEDROL] 62.5 mg IVPUSH Q8H 06/17/20 Breakfast Clear Liquid Diet [DIET] - Plan Plan:: ASSESSMENT AND PLAN - ALCOHOL ABUSE WITH DELIRIUM TREMENS-ongoing withdrawal but seems to be turning the corner and improving. -CIWA protocol with lorazepam -Scheduled gabapentin with decrease in dose today -Melatonin at bedtime -Supplement thiamine and folate -Discussion about treatment after she has cleared BILATERAL PNEUMONIA-complicated by acute respiratory failure with hypoxia. Hypoxia is improving. Not much of a cough. No fevers. -Antibiotic coverage with levofloxacin -Steroids -Scheduled nebs -Supplement oxygen as needed DRUG OVERDOSE/SUICIDE ATTEMPT-no obvious adverse reaction from the SSRI overdose/suicide attempt. Still not in good enough shape to talk about the event but we should be able to tomorrow. -Monitor in ICU -Crisis team assessment after her alcohol withdrawal is complete. COPD-wheezing has improved since yesterday. -Continue outpatient medical therapy MAINTENANCE ISSUES -DVT prophylaxis; enoxaparin -GI prophylaxis; not indicated -Viveros catheter; not indicated -Nutrition; trial of clear liquids. DISPOSITION-anticipate discharge to home after the hospital stay. Rc Ruiz MD
[2020-06-17] MEDS: Folic Acid 1 MG Tab PO SCH (09:27)
[2020-06-17] MEDS: Enoxaparin 40 MG/0.4 ML Syringe SUBCUT SCH (09:27)
[2020-06-17] MEDS: amLODIPine 5 MG Tab PO SCH (09:28)
[2020-06-17] MEDS: Levofloxacin/Dextrose 5%-Water 750 MG in Premix Bag 1 BAG IV SCH (09:28)
[2020-06-17] MEDS: atorvaSTATin 20 MG Tab PO SCH (09:28)
[2020-06-17] MEDS: Thiamine 100 MG Tab PO SCH (21:42)
[2020-06-17] MEDS: Gabapentin 100 MG Cap PO SCH (21:42)
[2020-06-17] MEDS: LORazepam 1 MG Tab PO PRN (21:51)
[2020-06-17] MEDS ORDERED: Gabapentin 100 MG Cap PO SCH (22:00)
[2020-06-18] MEDS: Acetaminophen 325 MG Tab PO PRN (00:57)
[2020-06-18] MEDS: methylPREDNISolone Sodium Succinate 125 MG/2 ML SDV IVPUSH SCH ×2 (00:59→07:58)
[2020-06-18] MEDS: LORazepam 2 MG/ML SDV IV PRN (01:01)
[2020-06-18] MEDS: D5 1/2 NS w/ 20 mEq/L KCl 1,000 ML IV SCH (05:57)
[2020-06-18] MEDS: Albuterol 0.083% 2.5 MG/3 ML Neb Soln NEB SCH (07:09)
[2020-06-18] MEDS: Glycopyrrolate 15.6 MCG Cap.W.Dev Kit of 6 IH SCH ×2 (07:09→20:57)
[2020-06-18] MEDS: Fluticasone-Salmeterol 113-14 MCG Powder Inhalant INH SCH ×2 (07:09→20:57)
--- NOTE | 2020-06-18 08:45 | PCM.PN ---
- General Info Date of Service: 06/18/20 Subjective Update: There were no acute events overnight. The patient is more alert and interactive again today. She has not had any fevers. She does continue to require supplemental oxygen. We did talk a little bit about the night and the events that preceded her coming to the emergency room. She reports that her ingestion of the antidepressant medication was very impulsive in the setting of alcohol intoxication and a high stress situation with the family. She regrets taking the medications and is happy that she did not hurt herself. She does not feel that she has a problem with her drinking though I think she is greatly underestimating or under reporting how much she was drinking giving the severity of her alcohol withdrawal. Functional Status: Reports: Pain Controlled, Tolerating Diet - Review of Systems General: Reports: Weakness Neurological: Reports: Tremors Psychiatric: Denies: Suicidal Ideation - Patient Data Vitals - Most Recent: Last Vital Signs Temp 36.3 C 06/18/20 08:00 Pulse 96 06/18/20 08:00 Resp 21 H 06/18/20 08:00 BP 134/71 06/18/20 08:00 Pulse Ox 97 06/18/20 08:00 Weight - Most Recent: 91.852 kg I&O - Last 24 Hours: Intake & Output 06/17/20 06/18/20 06/18/20 22:59 06:59 14:59 Intake Total 1636 1035 Output Total 575 Balance 1061 1035 Med Orders - Current: Current Medications Acetaminophen (Tylenol) 650 mg PO Q4H PRN PRN Reason: Pain (Mild 1-3)/fever Last Admin: 06/18/20 00:57 Dose: 650 mg Documented by: Albuterol (Proventil Neb Soln) 2.5 mg NEB Q4H PRN PRN Reason: shortness of breath/wheezing Albuterol/Ipratropium (Duoneb 3.0-0.5 Mg/3 Ml) 3 ml NEB QIDRT [facility] Amlodipine Besylate (Norvasc) 5 mg PO DAILY [facility] Last Admin: 06/17/20 09:28 Dose: 5 mg Documented by: Atorvastatin Calcium (Lipitor) 20 mg PO DAILY [facility] Last Admin: 06/17/20 09:28 Dose: 20 mg Documented by: Enoxaparin Sodium (Lovenox) 40 mg SUBCUT DAILY [facility] Last Admin: 06/17/20 09:27 Dose: 40 mg Documented by: Folic Acid (Folic Acid) 1 mg PO DAILY [facility] Last Admin: 06/17/20 09:27 Dose: 1 mg Documented by: Gabapentin (Neurontin) 200 mg PO TID [facility] Last Admin: 06/17/20 21:42 Dose: 200 mg Documented by: Glycopyrrolate (Seebri Neohaler) 15.6 mcg IH BIDRT [facility] Last Admin: 06/18/20 07:09 Dose: 15.6 mcg Documented by: Levofloxacin/Dextrose 750 mg/ (Premix) 150 mls @ 100 mls/hr IV Q24H [facility] Stop: 06/18/20 13:00 Last Admin: 06/17/20 09:28 Dose: 100 mls/hr Documented by: Levofloxacin (Levaquin) 250 mg PO Q24H [facility] Levofloxacin (Levaquin) 500 mg PO Q24H [facility] Lorazepam (Ativan) 0 mg PO ASDIRECTED PRN; Protocol PRN Reason: ETOH WITHDRAWAL Last Admin: 06/17/20 21:51 Dose: 1 mg Documented by: Ondansetron HCl (Zofran) 4 mg IV Q4H PRN PRN Reason: Nausea/Vomiting Last Admin: 06/13/20 09:20 Dose: 4 mg Documented by: Polyethylene Glycol (Miralax) 17 gm PO DAILY PRN PRN Reason: Constipation Prednisone (Prednisone) 20 mg PO BIDAC [facility] Fluticasone/Salmeterol (Fluticasone-Salmeterol 113-14 Mcg Powder Inh) 1 puff INH BIDRT [facility] Last Admin: 06/18/20 07:09 Dose: 1 puff Documented by: Sodium Chloride (Saline Flush) 10 ml FLUSH ASDIRECTED PRN PRN Reason: Keep Vein Open Thiamine HCl (Vitamin B-1) 100 mg PO BEDTIME [facility] Last Admin: 06/17/20 21:42 Dose: 100 mg Documented by: Discontinued Medications Albuterol (Proventil Neb Soln) 2.5 mg NEB QIDRT [facility] Last Admin: 06/18/20 07:09 Dose: 2.5 mg Documented by: Gabapentin (Neurontin) 400 mg PO Q8H [facility] Stop: 06/17/20 22:01 Last Admin: 06/17/20 13:31 Dose: 400 mg Documented by: Gabapentin (Neurontin) 400 mg PO ONETIME ONE Stop: 06/13/20 14:46 Last Admin: 06/13/20 14:50 Dose: 400 mg Documented by: Lactated Ringer's (Ringers, Lactated) 1,000 mls @ 125 mls/hr IV ASDIRECTED [facility] Last Admin: 06/13/20 02:49 Dose: 125 mls/hr Documented by: Sodium Chloride (Normal Saline) 1,000 mls @ 125 mls/hr IV ASDIRECTED [facility] Last Admin: 06/14/20 05:09 Dose: 125 mls/hr Documented by: Sodium Chloride (Normal Saline) 1,000 mls @ 50 mls/hr IV ASDIRECTED [facility] Last Admin: 06/14/20 17:13 Dose: 50 mls/hr Documented by: Potassium Chloride/Dextrose/Sod Cl (D5 1/2 Ns W/ 20 Meq/L Kcl) 1,000 mls @ 75 mls/hr IV ASDIRECTED [facility] Last Admin: 06/18/20 05:57 Dose: 75 mls/hr Documented by: Potassium Chloride 20 meq/Lidocaine HCl 2 ml/ Sodium Chloride 112 mls @ 50 mls/hr IV Q2H [facility] Stop: 06/16/20 13:59 Last Admin: 06/16/20 12:39 Dose: 50 mls/hr Documented by: Lorazepam (Ativan) 0 mg IV ASDIRECTED PRN; Protocol PRN Reason: ETOH WITHDRAWAL Last Admin: 06/18/20 01:01 Dose: 1 mg Documented by: Methylprednisolone Sodium Succinate (Solu-Medrol) 125 mg IVPUSH ONETIME ONE Stop: 06/16/20 10:01 Last Admin: 06/16/20 10:23 Dose: 125 mg Documented by: Methylprednisolone Sodium Succinate (Solu-Medrol) 62.5 mg IVPUSH Q8H [facility] Last Admin: 06/18/20 07:58 Dose: 62.5 mg Documented by: Sodium Chloride (Saline Flush) 10 ml FLUSH ASDIRECTED PRN PRN Reason: Keep Vein Open - Exam Quality Assessment: Supplemental Oxygen General: Alert, Oriented, Cooperative, No Acute Distress HEENT: Pupils Equal Lungs: Normal Respiratory Effort, Wheezing (mild diffuse ). No: Crackles Cardiovascular: Regular Rate, Regular Rhythm GI/Abdominal Exam: Soft, No Distention Extremities: No Pedal Edema. No: Increased Warmth Skin: Warm, Dry Psy/Mental Status: Alert, Normal Affect Sepsis Event Note - Evaluation Sepsis Screening Result: No Definite Risk - Focused Exam Vital Signs: Vital Signs Temp Pulse Resp BP Pulse Ox 06/18/20 08:00 36.3 C 96 21 H 134/71 97 06/18/20 07:10 94 06/18/20 06:00 93 16 156/80 H 95 06/18/20 04:00 36.4 C 94 20 141/69 H 93 L 06/18/20 02:00 94 16 134/80 94 L 06/18/20 00:00 35.9 C L 97 15 123/70 92 L 06/17/20 22:00 92 17 134/71 94 L - Problem List Review Problem List Initiated/Reviewed/Updated: Yes - My Orders Last 24 Hours: My Active Orders 06/17/20 Breakfast Clear Liquid Diet [DIET] 06/17/20 21:00 Gabapentin [Neurontin] 200 mg PO TID 06/18/20 08:41 Convert IV to Saline Lock [OM.PC] Routine 06/18/20 08:42 RT Aerosol Therapy [RC] ASDIRECTED 06/18/20 08:43 Transfer Patient (Change bed) [ADT] Routine Discontinue Telemetry Monitoring [Cardiac Monitoring Discontinue] [RC] Click to Edit 06/18/20 08:44 PT Evaluation and Treatment [CONS] Routine 06/18/20 11:00 Albuterol/Ipratropium [DuoNeb 3.0-0.5 MG/3 ML] 3 ml NEB QIDRT 06/18/20 16:30 predniSONE 20 mg PO BIDAC 06/19/20 05:00 BASIC METABOLIC PANEL,BMP [CHEM] Timed 06/19/20 10:00 levoFLOXacin [Levaquin] 250 mg PO Q24H levoFLOXacin [Levaquin] 500 mg PO Q24H - Plan Plan:: ASSESSMENT AND PLAN - ALCOHOL ABUSE WITH DELIRIUM TREMENS-ongoing withdrawal though there has been dramatic improvement in the past 24 hours. Still weak and tremulous but mental status seems to be close to baseline. She does not think she has a problem with alcohol and is not interested in treatment at this time other than some ou tpatient counseling. -CIWA protocol with oral lorazepam -Scheduled gabapentin with decrease in dose 06/17 -Melatonin at bedtime -Supplement thiamine and folate -Discussion about treatment after she has cleared BILATERAL PNEUMONIA-complicated by acute respiratory failure with hypoxia. Hypoxia slowly improving. No fevers. -Antibiotic coverage with levofloxacin -Steroids (transition to oral) -Scheduled nebs -Supplement oxygen as needed DRUG OVERDOSE/SUICIDE ATTEMPT-no obvious adverse reaction from the SSRI overdose/suicide attempt. Patient reports impulsive ingestion of medications with high stress. She has not having active thoughts of hurting herself. She is remorseful for the action. -Monitor in ICU -At this point I think she will be safe for outpatient therapy COPD-wheezing has resolved. -Continue outpatient medical therapy MAINTENANCE ISSUES -DVT prophylaxis; enoxaparin -GI prophylaxis; not indicated -Viveros catheter; not indicated -Nutrition; trial of clear liquids. DISPOSITION-anticipate discharge to home after the hospital stay. Rc Ruiz MD
[2020-06-18] MEDS: Gabapentin 100 MG Cap PO SCH ×3 (09:57→20:56)
[2020-06-18] MEDS: Folic Acid 1 MG Tab PO SCH (09:58)
[2020-06-18] MEDS: atorvaSTATin 20 MG Tab PO SCH (09:58)
[2020-06-18] MEDS: amLODIPine 5 MG Tab PO SCH (09:58)
[2020-06-18] MEDS: Enoxaparin 40 MG/0.4 ML Syringe SUBCUT SCH (09:58)
[2020-06-18] MEDS: Levofloxacin/Dextrose 5%-Water 750 MG in Premix Bag 1 BAG IV SCH (09:59)
[2020-06-18] MEDS: Albuterol/Ipratropium 3.0-0.5 MG/3 ML Neb Soln NEB SCH ×3 (10:38→20:57)
[2020-06-18] MEDS: predniSONE 20 MG Tab PO SCH (18:01)
[2020-06-18] MEDS: Thiamine 100 MG Tab PO SCH (20:57)
[2020-06-19] MEDS: LORazepam 1 MG Tab PO PRN (02:10)
[2020-06-19] MEDS: Albuterol/Ipratropium 3.0-0.5 MG/3 ML Neb Soln NEB SCH ×4 (07:22→20:29)
[2020-06-19] MEDS: Glycopyrrolate 15.6 MCG Cap.W.Dev Kit of 6 IH SCH ×2 (07:23→20:30)
[2020-06-19] MEDS: Fluticasone-Salmeterol 113-14 MCG Powder Inhalant INH SCH ×2 (07:23→20:29)
[2020-06-19] MEDS: amLODIPine 5 MG Tab PO SCH (08:08)
[2020-06-19] MEDS: Gabapentin 100 MG Cap PO SCH ×3 (08:08→20:30)
[2020-06-19] MEDS: atorvaSTATin 20 MG Tab PO SCH (08:08)
[2020-06-19] MEDS: Enoxaparin 40 MG/0.4 ML Syringe SUBCUT SCH (08:08)
[2020-06-19] MEDS: Folic Acid 1 MG Tab PO SCH (08:09)
[2020-06-19] MEDS: predniSONE 20 MG Tab PO SCH (08:09)
--- NOTE | 2020-06-19 09:28 | PCM.PN ---
- General Info Date of Service: 06/19/20 Subjective Update: Overnight the patient had some difficulty with hallucinations and did receive a dose of lorazepam. She does not seem to be hallucinating this morning. Her mood seems to be good. She is requiring supplemental oxygen but is down to 1 L this morning. Vital signs have all been stable. No complaints of abdominal pain. Her bowels are moving. She is still weak and somewhat shaky but slowly seems to be coming around. Functional Status: Reports: Pain Controlled, Tolerating Diet - Review of Systems Psychiatric: Reports: Hallucinations - Patient Data Vitals - Most Recent: Last Vital Signs Temp 36.6 C 06/19/20 07:00 Pulse 91 06/19/20 07:23 Resp 18 06/19/20 07:00 BP 149/84 H 06/19/20 08:08 Pulse Ox 93 L 06/19/20 07:23 Weight - Most Recent: 91.852 kg I&O - Last 24 Hours: Intake & Output 06/18/20 06/19/20 06/19/20 22:59 06:59 14:59 Intake Total 120 Balance 120 Lab Results Last 24 Hours: Laboratory Results - last 24 hr 06/19/20 Range/Units 04:05 Sodium 141 (140-148) mmol/L Potassium 3.8 (3.6-5.2) mmol/L Chloride 106 (100-108) mmol/L Carbon Dioxide 27 (21-32) mmol/L Anion Gap 8.5 (5.0-14.0) mmol/L BUN 20 H (7-18) mg/dL Creatinine 0.9 (0.6-1.0) mg/dL Est Cr Clr Drug Dosing 46.66 mL/min Estimated GFR (MDRD) > 60 (>60) Glucose 149 H (74-106) mg/dL Calcium 8.9 (8.5-10.1) mg/dL Med Orders - Current: Current Medications Acetaminophen (Tylenol) 650 mg PO Q4H PRN PRN Reason: Pain (Mild 1-3)/fever Last Admin: 06/18/20 00:57 Dose: 650 mg Documented by: Albuterol (Proventil Neb Soln) 2.5 mg NEB Q4H PRN PRN Reason: shortness of breath/wheezing Albuterol/Ipratropium (Duoneb 3.0-0.5 Mg/3 Ml) 3 ml NEB QIDRT [facility] Last Admin: 06/19/20 07:22 Dose: 3 ml Documented by: Amlodipine Besylate (Norvasc) 5 mg PO DAILY [facility] Last Admin: 06/19/20 08:08 Dose: 5 mg Documented by: Atorvastatin Calcium (Lipitor) 20 mg PO DAILY [facility] Last Admin: 06/19/20 08:08 Dose: 20 mg Documented by: Enoxaparin Sodium (Lovenox) 40 mg SUBCUT DAILY [facility] Last Admin: 06/19/20 08:08 Dose: 40 mg Documented by: Folic Acid (Folic Acid) 1 mg PO DAILY [facility] Last Admin: 06/19/20 08:09 Dose: 1 mg Documented by: Gabapentin (Neurontin) 200 mg PO TID [facility] Last Admin: 06/19/20 08:08 Dose: 200 mg Documented by: Glycopyrrolate (Seebri Neohaler) 15.6 mcg IH BIDRT [facility] Last Admin: 06/19/20 07:23 Dose: 15.6 mcg Documented by: Levofloxacin 250 mg/ (Levofloxacin 500 mg) 750 mg PO ACBREAKFAST [facility] Last Admin: 06/19/20 08:09 Dose: 750 mg Documented by: Lorazepam (Ativan) 0 mg PO ASDIRECTED PRN; Protocol PRN Reason: ETOH WITHDRAWAL Last Admin: 06/19/20 02:10 Dose: 2 mg Documented by: Ondansetron HCl (Zofran) 4 mg IV Q4H PRN PRN Reason: Nausea/Vomiting Last Admin: 06/13/20 09:20 Dose: 4 mg Documented by: Polyethylene Glycol (Miralax) 17 gm PO DAILY PRN PRN Reason: Constipation Fluticasone/Salmeterol (Fluticasone-Salmeterol 113-14 Mcg Powder Inh) 1 puff INH BIDRT [facility] Last Admin: 06/19/20 07:23 Dose: 1 puff Documented by: Sodium Chloride (Saline Flush) 10 ml FLUSH ASDIRECTED PRN PRN Reason: Keep Vein Open Thiamine HCl (Vitamin B-1) 100 mg PO BEDTIME [facility] Last Admin: 06/18/20 20:57 Dose: 100 mg Documented by: Discontinued Medications Albuterol (Proventil Neb Soln) 2.5 mg NEB QIDRT [facility] Last Admin: 06/18/20 07:09 Dose: 2.5 mg Documented by: Gabapentin (Neurontin) 400 mg PO Q8H [facility] Stop: 06/17/20 22:01 Last Admin: 06/17/20 13:31 Dose: 400 mg Documented by: Gabapentin (Neurontin) 400 mg PO ONETIME ONE Stop: 06/13/20 14:46 Last Admin: 06/13/20 14:50 Dose: 400 mg Documented by: Lactated Ringer's (Ringers, Lactated) 1,000 mls @ 125 mls/hr IV ASDIRECTED [facility] Last Admin: 06/13/20 02:49 Dose: 125 mls/hr Documented by: Sodium Chloride (Normal Saline) 1,000 mls @ 125 mls/hr IV ASDIRECTED [facility] Last Admin: 06/14/20 05:09 Dose: 125 mls/hr Documented by: Sodium Chloride (Normal Saline) 1,000 mls @ 50 mls/hr IV ASDIRECTED [facility] Last Admin: 06/14/20 17:13 Dose: 50 mls/hr Documented by: Potassium Chloride/Dextrose/Sod Cl (D5 1/2 Ns W/ 20 Meq/L Kcl) 1,000 mls @ 75 mls/hr IV ASDIRECTED [facility] Last Admin: 06/18/20 05:57 Dose: 75 mls/hr Documented by: Potassium Chloride 20 meq/Lidocaine HCl 2 ml/ Sodium Chloride 112 mls @ 50 mls/hr IV Q2H [facility] Stop: 06/16/20 13:59 Last Admin: 06/16/20 12:39 Dose: 50 mls/hr Documented by: Levofloxacin/Dextrose 750 mg/ (Premix) 150 mls @ 100 mls/hr IV Q24H [facility] Stop: 06/18/20 13:00 Last Admin: 06/18/20 09:59 Dose: 100 mls/hr Documented by: Lorazepam (Ativan) 0 mg IV ASDIRECTED PRN; Protocol PRN Reason: ETOH WITHDRAWAL Last Admin: 06/18/20 01:01 Dose: 1 mg Documented by: Methylprednisolone Sodium Succinate (Solu-Medrol) 125 mg IVPUSH ONETIME ONE Stop: 06/16/20 10:01 Last Admin: 06/16/20 10:23 Dose: 125 mg Documented by: Methylprednisolone Sodium Succinate (Solu-Medrol) 62.5 mg IVPUSH Q8H [facility] Last Admin: 06/18/20 07:58 Dose: 62.5 mg Documented by: Prednisone (Prednisone) 20 mg PO BIDMEALS [facility] Last Admin: 06/19/20 08:09 Dose: 20 mg Documented by: Sodium Chloride (Saline Flush) 10 ml FLUSH ASDIRECTED PRN PRN Reason: Keep Vein Open - Exam Quality Assessment: Supplemental Oxygen General: Alert, Oriented, Cooperative, No Acute Distress Lungs: Normal Respiratory Effort, Crackles (rare left lung base) Cardiovascular: Regular Rate, Regular Rhythm GI/Abdominal Exam: Soft, No Distention Extremities: No Pedal Edema. No: Increased Warmth Peripheral Pulses: 1+: Dorsalis Pedis (L), Dorsalis Pedis (R) Skin: Warm, Dry Psy/Mental Status: Alert, Normal Affect Sepsis Event Note - Evaluation Sepsis Screening Result: No Definite Risk - Focused Exam Vital Signs: Vital Signs Temp Pulse Resp BP BP Pulse Ox Pulse Ox 06/19/20 08:08 149/84 H 06/19/20 07:23 91 93 L 06/19/20 07:00 36.6 C 96 18 149/84 H 93 L 06/19/20 03:00 36.0 C L 92 18 148/77 H 92 L 06/18/20 23:00 37.2 C 95 18 91 L - Problem List Review Problem List Initiated/Reviewed/Updated: Yes - My Orders Last 24 Hours: My Active Orders 06/18/20 08:41 Convert IV to Saline Lock [OM.PC] Routine 06/18/20 08:43 Transfer Patient (Change bed) [ADT] Routine 06/18/20 08:44 PT Evaluation and Treatment [CONS] Routine 06/18/20 11:00 Albuterol/Ipratropium [DuoNeb 3.0-0.5 MG/3 ML] 3 ml NEB QIDRT 06/18/20 Lunch Regular Diet [DIET] 06/19/20 07:30 Levofloxacin [Levaquin] 750 mg PO ACBREAKFAST 06/19/20 09:26 Incentive Spirometry [RT Incentive Spirometry] [RC] Q1HWA 06/20/20 08:00 predniSONE 20 mg PO WITHBREAKFAST - Plan Plan:: ASSESSMENT AND PLAN - ALCOHOL ABUSE WITH DELIRIUM TREMENS-she seems to be very near the end of her alcohol withdrawal. Main difficulty at this point is weakness and some tremor. She does not think she has a problem with alcohol and is not interested in treatment at this time. She is interested in some outpatient counseling and an appointment has been set up. -CIWA protocol with oral lorazepam -Scheduled gabapentin with decrease in dose 06/17 -Melatonin at bedtime -Supplement thiamine and folate -Outpatient chemical dependency counseling with Mignon Welch BILATERAL PNEUMONIA-complicated by acute respiratory failure with hypoxia and an exacerbation of her COPD. Hypoxia slowly improving. No fevers. -Antibiotic coverage with levofloxacin -Steroids (transition to oral), dose decreased to 20 mg daily today -Scheduled nebs -Supplement oxygen as needed DRUG OVERDOSE/SUICIDE ATTEMPT-no obvious adverse reaction from the SSRI overdose/suicide attempt. Patient reports impulsive ingestion of medications with high stress. She has not having active thoughts of hurting herself. She is remorseful for the action. -Outpatient therapy COPD-wheezing has resolved. -Continue outpatient medical therapy MAINTENANCE ISSUES -DVT prophylaxis; enoxaparin -GI prophylaxis; not indicated -Viveros catheter; not indicated -Nutrition; regular diet DISPOSITION-anticipate discharge to home after the hospital stay. Rc Ruiz MD
[2020-06-19] MEDS ORDERED: Levofloxacin 500 MG Tab PO SCH (10:00)
[2020-06-19] MEDS ORDERED: Levofloxacin 250 MG Tab PO SCH (10:00)
[2020-06-19] MEDS ORDERED: Haloperidol 5 MG Tab PO PRN (13:48)
[2020-06-19] MEDS: Thiamine 100 MG Tab PO SCH (20:32)
[2020-06-20] MEDS: Fluticasone-Salmeterol 113-14 MCG Powder Inhalant INH SCH ×2 (07:33→20:20)
[2020-06-20] MEDS: Glycopyrrolate 15.6 MCG Cap.W.Dev Kit of 6 IH SCH ×2 (07:33→20:20)
[2020-06-20] MEDS: Albuterol/Ipratropium 3.0-0.5 MG/3 ML Neb Soln NEB SCH ×4 (07:33→20:20)
[2020-06-20] MEDS ORDERED: predniSONE 20 MG Tab PO SCH (08:00)
[2020-06-20] MEDS: amLODIPine 5 MG Tab PO SCH (09:06)
[2020-06-20] MEDS: Gabapentin 100 MG Cap PO SCH ×3 (09:07→20:20)
[2020-06-20] MEDS: atorvaSTATin 20 MG Tab PO SCH (09:07)
[2020-06-20] MEDS: PARoxetine 20 MG Tab PO SCH (09:07)
[2020-06-20] MEDS: Enoxaparin 40 MG/0.4 ML Syringe SUBCUT SCH (09:07)
[2020-06-20] MEDS: Folic Acid 1 MG Tab PO SCH (09:08)
--- NOTE | 2020-06-20 11:38 | PCM.PN ---
- General Info Date of Service: 06/20/20 Subjective Update: No acute events overnight but the patient did have some more difficulty with hallucinations. She was seeing things in the bathroom again last night. No obvious hallucinations this morning. No fevers. Still shaky and unsteady on her feet. Mental status seems to be improving and I would expect that she is probably back to her baseline at this point with the exception of the hallucinations. She does not feel short of breath but does continue to require supplemental oxygen. Appetite has been good. Functional Status: Reports: Pain Controlled, Tolerating Diet - Review of Systems General: Reports: Weakness Pulmonary: Denies: Shortness of Breath Psychiatric: Reports: Hallucinations - Patient Data Vitals - Most Recent: Last Vital Signs Temp 36.6 C 06/20/20 11:00 Pulse 87 06/20/20 11:21 Resp 18 06/20/20 11:00 BP 107/57 L 06/20/20 11:00 Pulse Ox 95 06/20/20 11:21 Weight - Most Recent: 91.852 kg I&O - Last 24 Hours: Intake & Output 06/19/20 06/20/20 06/20/20 22:59 06:59 14:59 Intake Total 240 240 Balance 240 240 Med Orders - Current: Current Medications Acetaminophen (Tylenol) 650 mg PO Q4H PRN PRN Reason: Pain (Mild 1-3)/fever Last Admin: 06/18/20 00:57 Dose: 650 mg Documented by: Albuterol (Proventil Neb Soln) 2.5 mg NEB Q4H PRN PRN Reason: shortness of breath/wheezing Last Admin: 06/20/20 11:21 Dose: 2.5 mg Documented by: Albuterol/Ipratropium (Duoneb 3.0-0.5 Mg/3 Ml) 3 ml NEB QIDRT [facility] Last Admin: 06/20/20 07:33 Dose: 3 ml Documented by: Amlodipine Besylate (Norvasc) 5 mg PO DAILY [facility] Last Admin: 06/20/20 09:06 Dose: 5 mg Documented by: Atorvastatin Calcium (Lipitor) 20 mg PO DAILY [facility] Last Admin: 06/20/20 09:07 Dose: 20 mg Documented by: Enoxaparin Sodium (Lovenox) 40 mg SUBCUT DAILY [facility] Last Admin: 06/20/20 09:07 Dose: 40 mg Documented by: Folic Acid (Folic Acid) 1 mg PO DAILY [facility] Last Admin: 06/20/20 09:08 Dose: 1 mg Documented by: Gabapentin (Neurontin) 200 mg PO TID [facility] Last Admin: 06/20/20 09:07 Dose: 200 mg Documented by: Glycopyrrolate (Seebri Neohaler) 15.6 mcg IH BIDRT [facility] Last Admin: 06/20/20 07:33 Dose: 15.6 mcg Documented by: Haloperidol (Haldol) 2.5 mg PO Q6H PRN PRN Reason: Hallucinations Last Admin: 06/20/20 01:08 Dose: 2.5 mg Documented by: Levofloxacin 250 mg/ (Levofloxacin 500 mg) 750 mg PO ACBREAKFAST [facility] Last Admin: 06/20/20 09:07 Dose: 750 mg Documented by: Ondansetron HCl (Zofran) 4 mg IV Q4H PRN PRN Reason: Nausea/Vomiting Last Admin: 06/13/20 09:20 Dose: 4 mg Documented by: Paroxetine HCl (Paxil) 40 mg PO DAILY [facility] Last Admin: 06/20/20 09:07 Dose: 40 mg Documented by: Polyethylene Glycol (Miralax) 17 gm PO DAILY PRN PRN Reason: Constipation Fluticasone/Salmeterol (Fluticasone-Salmeterol 113-14 Mcg Powder Inh) 1 puff INH BIDRT [facility] Last Admin: 06/20/20 07:33 Dose: 1 puff Documented by: Sodium Chloride (Saline Flush) 10 ml FLUSH ASDIRECTED PRN PRN Reason: Keep Vein Open Thiamine HCl (Vitamin B-1) 100 mg PO BEDTIME [facility] Last Admin: 06/19/20 20:32 Dose: 100 mg Documented by: Discontinued Medications Albuterol (Proventil Neb Soln) 2.5 mg NEB QIDRT [facility] Last Admin: 06/18/20 07:09 Dose: 2.5 mg Documented by: Gabapentin (Neurontin) 400 mg PO Q8H [facility] Stop: 06/17/20 22:01 Last Admin: 06/17/20 13:31 Dose: 400 mg Documented by: Gabapentin (Neurontin) 400 mg PO ONETIME ONE Stop: 06/13/20 14:46 Last Admin: 06/13/20 14:50 Dose: 400 mg Documented by: Lactated Ringer's (Ringers, Lactated) 1,000 mls @ 125 mls/hr IV ASDIRECTED [facility] Last Admin: 06/13/20 02:49 Dose: 125 mls/hr Documented by: Sodium Chloride (Normal Saline) 1,000 mls @ 125 mls/hr IV ASDIRECTED [facility] Last Admin: 06/14/20 05:09 Dose: 125 mls/hr Documented by: Sodium Chloride (Normal Saline) 1,000 mls @ 50 mls/hr IV ASDIRECTED [facility] Last Admin: 06/14/20 17:13 Dose: 50 mls/hr Documented by: Potassium Chloride/Dextrose/Sod Cl (D5 1/2 Ns W/ 20 Meq/L Kcl) 1,000 mls @ 75 mls/hr IV ASDIRECTED [facility] Last Admin: 06/18/20 05:57 Dose: 75 mls/hr Documented by: Potassium Chloride 20 meq/Lidocaine HCl 2 ml/ Sodium Chloride 112 mls @ 50 mls/hr IV Q2H [facility] Stop: 06/16/20 13:59 Last Admin: 06/16/20 12:39 Dose: 50 mls/hr Documented by: Levofloxacin/Dextrose 750 mg/ (Premix) 150 mls @ 100 mls/hr IV Q24H [facility] Stop: 06/18/20 13:00 Last Admin: 06/18/20 09:59 Dose: 100 mls/hr Documented by: Lorazepam (Ativan) 0 mg IV ASDIRECTED PRN; Protocol PRN Reason: ETOH WITHDRAWAL Last Admin: 06/18/20 01:01 Dose: 1 mg Documented by: Lorazepam (Ativan) 0 mg PO ASDIRECTED PRN; Protocol PRN Reason: ETOH WITHDRAWAL Last Admin: 06/19/20 02:10 Dose: 2 mg Documented by: Methylprednisolone Sodium Succinate (Solu-Medrol) 125 mg IVPUSH ONETIME ONE Stop: 06/16/20 10:01 Last Admin: 06/16/20 10:23 Dose: 125 mg Documented by: Methylprednisolone Sodium Succinate (Solu-Medrol) 62.5 mg IVPUSH Q8H [facility] Last Admin: 06/18/20 07:58 Dose: 62.5 mg Documented by: Prednisone (Prednisone) 20 mg PO BIDMEALS [facility] Last Admin: 06/19/20 08:09 Dose: 20 mg Documented by: Prednisone (Prednisone) 20 mg PO WITHBREAKFAST [facility] Last Admin: 06/20/20 09:08 Dose: 20 mg Documented by: Sodium Chloride (Saline Flush) 10 ml FLUSH ASDIRECTED PRN PRN Reason: Keep Vein Open - Exam Quality Assessment: Supplemental Oxygen General: Alert, Oriented, Cooperative, No Acute Distress Lungs: Clear to Auscultation, Normal Respiratory Effort. No: Crackles, Wheezing Cardiovascular: Regular Rate, Regular Rhythm GI/Abdominal Exam: Soft, No Distention Extremities: No Pedal Edema. No: Increased Warmth Skin: Warm, Dry Psy/Mental Status: Alert, Normal Affect. No: Hallucinations Sepsis Event Note - Evaluation Sepsis Screening Result: No Definite Risk - Focused Exam Vital Signs: Vital Signs Temp Pulse Resp BP BP Pulse Ox Pulse Ox 06/20/20 11:21 87 95 06/20/20 11:00 36.6 C 88 18 107/57 L 93 L 06/20/20 09:06 156/82 H 06/20/20 07:36 85 06/20/20 07:34 84 94 L 06/20/20 07:00 37.1 C 86 18 156/82 H 89 L - Problem List Review Problem List Initiated/Reviewed/Updated: Yes - My Orders Last 24 Hours: My Active Orders 06/19/20 13:48 haloperidoL [Haldol] 2.5 mg PO Q6H PRN 06/20/20 09:00 PARoxetine [Paxil] 40 mg PO DAILY - Plan Plan:: ASSESSMENT AND PLAN - ALCOHOL ABUSE WITH DELIRIUM TREMENS-she seems to be very near the end of her alcohol withdrawal. Still weak and shaky but slowly improving. -Physical therapy -Scheduled gabapentin with decrease in dose 06/17 -Melatonin at bedtime -Supplement thiamine and folate -Outpatient chemical dependency counseling with Mignon Welch BILATERAL PNEUMONIA-complicated by acute respiratory failure with hypoxia and an exacerbation of her COPD. Hypoxia slowly improving but has not resolved. No major symptoms. -Antibiotic coverage with levofloxacin -Discontinue steroids -Scheduled nebs -Supplement oxygen as needed DRUG OVERDOSE/SUICIDE ATTEMPT-no obvious adverse reaction from the SSRI overdose/suicide attempt. Patient reports impulsive ingestion of medications with high stress. She has not having active thoughts of hurting herself. She is remorseful for the action. -Outpatient therapy COPD-wheezing has resolved. -Continue outpatient medical therapy MAINTENANCE ISSUES -DVT prophylaxis; enoxaparin -GI prophylaxis; not indicated -Viveros catheter; not indicated -Nutrition; regular diet DISPOSITION-anticipate discharge to home versus subacute rehab after the hospital stay. She is quite weak and still shaky and may benefit from a short stay at the custodial though she is not very excited about this idea. Rc Ruiz MD
[2020-06-20] MEDS: Polyethylene Glycol 3350 Powder 17 GM Packet PO PRN (18:08)
[2020-06-20] MEDS: Thiamine 100 MG Tab PO SCH (20:20)
[2020-06-21] MEDS: Albuterol/Ipratropium 3.0-0.5 MG/3 ML Neb Soln NEB SCH ×4 (07:05→20:09)
[2020-06-21] MEDS: Glycopyrrolate 15.6 MCG Cap.W.Dev Kit of 6 IH SCH ×2 (07:05→20:07)
[2020-06-21] MEDS: Fluticasone-Salmeterol 113-14 MCG Powder Inhalant INH SCH ×2 (07:05→20:07)
[2020-06-21] MEDS: atorvaSTATin 20 MG Tab PO SCH (08:09)
[2020-06-21] MEDS: Gabapentin 100 MG Cap PO SCH ×3 (08:09→20:07)
[2020-06-21] MEDS: PARoxetine 20 MG Tab PO SCH (08:09)
[2020-06-21] MEDS: amLODIPine 5 MG Tab PO SCH (08:10)
[2020-06-21] MEDS: Enoxaparin 40 MG/0.4 ML Syringe SUBCUT SCH (08:10)
[2020-06-21] MEDS: Folic Acid 1 MG Tab PO SCH (08:10)
[2020-06-21] MEDS: Polyethylene Glycol 3350 Powder 17 GM Packet PO PRN (16:30)
[2020-06-21] MEDS: Thiamine 100 MG Tab PO SCH (20:07)
[2020-06-22] MEDS: Albuterol/Ipratropium 3.0-0.5 MG/3 ML Neb Soln NEB SCH ×4 (07:28→21:24)
[2020-06-22] MEDS: Fluticasone-Salmeterol 113-14 MCG Powder Inhalant INH SCH ×2 (07:28→21:24)
[2020-06-22] MEDS: Glycopyrrolate 15.6 MCG Cap.W.Dev Kit of 6 IH SCH ×2 (07:28→21:24)
[2020-06-22] MEDS: Folic Acid 1 MG Tab PO SCH (08:40)
[2020-06-22] MEDS: PARoxetine 20 MG Tab PO SCH (08:40)
[2020-06-22] MEDS: Gabapentin 100 MG Cap PO SCH (08:40)
[2020-06-22] MEDS: atorvaSTATin 20 MG Tab PO SCH (08:40)
[2020-06-22] MEDS: Enoxaparin 40 MG/0.4 ML Syringe SUBCUT SCH (08:41)
[2020-06-22] MEDS: amLODIPine 5 MG Tab PO SCH (08:41)
--- NOTE | 2020-06-22 13:11 | PCM.PN ---
- General Info Date of Service: 06/22/20 Subjective Update: Ms. Parnell has been stable since yesterday and is slowly regaining strength. Alcohol withdrawal has resolved and she is no longer tremulous. Transfers and ambulation are slowly improving but she is not yet felt to be safe for discharged home. Functional Status: Reports: Tolerating Diet, Ambulating, Urinating - Review of Systems General: Reports: Weakness, Fatigue. Denies: Fever, Chills Pulmonary: Reports: No Symptoms Cardiovascular: Reports: No Symptoms Gastrointestinal: Reports: No Symptoms - Patient Data Vitals - Most Recent: Last Vital Signs Temp 97.5 F 06/22/20 07:17 Pulse 87 06/22/20 11:03 Resp 16 06/22/20 07:17 BP 137/75 06/22/20 08:41 Pulse Ox 94 L 06/22/20 11:03 Weight - Most Recent: 189 lb I&O - Last 24 Hours: Intake & Output 06/21/20 06/22/20 06/22/20 22:59 06:59 14:59 Intake Total 1180 Balance 1180 Med Orders - Current: Current Medications Acetaminophen (Tylenol) 650 mg PO Q4H PRN PRN Reason: Pain (Mild 1-3)/fever Last Admin: 06/18/20 00:57 Dose: 650 mg Documented by: Albuterol (Proventil Neb Soln) 2.5 mg NEB Q4H PRN PRN Reason: shortness of breath/wheezing Last Admin: 06/20/20 11:21 Dose: 2.5 mg Documented by: Albuterol/Ipratropium (Duoneb 3.0-0.5 Mg/3 Ml) 3 ml NEB QIDRT [facility] Last Admin: 06/22/20 11:02 Dose: 3 ml Documented by: Amlodipine Besylate (Norvasc) 5 mg PO DAILY [facility] Last Admin: 06/22/20 08:41 Dose: 5 mg Documented by: Atorvastatin Calcium (Lipitor) 20 mg PO DAILY [facility] Last Admin: 06/22/20 08:40 Dose: 20 mg Documented by: Enoxaparin Sodium (Lovenox) 40 mg SUBCUT DAILY [facility] Last Admin: 06/22/20 08:41 Dose: 40 mg Documented by: Folic Acid (Folic Acid) 1 mg PO DAILY [facility] Last Admin: 06/22/20 08:40 Dose: 1 mg Documented by: Glycopyrrolate (Seebri Neohaler) 15.6 mcg IH BIDRT [facility] Last Admin: 06/22/20 07:28 Dose: 15.6 mcg Documented by: Haloperidol (Haldol) 2.5 mg PO Q6H PRN PRN Reason: Hallucinations Last Admin: 06/20/20 01:08 Dose: 2.5 mg Documented by: Levofloxacin 250 mg/ (Levofloxacin 500 mg) 750 mg PO ACBREAKFAST [facility] Last Admin: 06/22/20 07:17 Dose: 750 mg Documented by: Ondansetron HCl (Zofran) 4 mg IV Q4H PRN PRN Reason: Nausea/Vomiting Last Admin: 06/13/20 09:20 Dose: 4 mg Documented by: Paroxetine HCl (Paxil) 40 mg PO DAILY [facility] Last Admin: 06/22/20 08:40 Dose: 40 mg Documented by: Polyethylene Glycol (Miralax) 17 gm PO DAILY PRN PRN Reason: Constipation Last Admin: 06/21/20 16:30 Dose: 17 gm Documented by: Fluticasone/Salmeterol (Fluticasone-Salmeterol 113-14 Mcg Powder Inh) 1 puff INH BIDRT [facility] Last Admin: 06/22/20 07:28 Dose: 1 puff Documented by: Sodium Chloride (Saline Flush) 10 ml FLUSH ASDIRECTED PRN PRN Reason: Keep Vein Open Thiamine HCl (Vitamin B-1) 100 mg PO BEDTIME [facility] Last Admin: 06/21/20 20:07 Dose: 100 mg Documented by: Discontinued Medications Albuterol (Proventil Neb Soln) 2.5 mg NEB QIDRT [facility] Last Admin: 06/18/20 07:09 Dose: 2.5 mg Documented by: Gabapentin (Neurontin) 400 mg PO Q8H [facility] Stop: 06/17/20 22:01 Last Admin: 06/17/20 13:31 Dose: 400 mg Documented by: Gabapentin (Neurontin) 400 mg PO ONETIME ONE Stop: 06/13/20 14:46 Last Admin: 06/13/20 14:50 Dose: 400 mg Documented by: Gabapentin (Neurontin) 200 mg PO TID [facility] Last Admin: 06/22/20 08:40 Dose: 200 mg Documented by: Lactated Ringer's (Ringers, Lactated) 1,000 mls @ 125 mls/hr IV ASDIRECTED [facility] Last Admin: 06/13/20 02:49 Dose: 125 mls/hr Documented by: Sodium Chloride (Normal Saline) 1,000 mls @ 125 mls/hr IV ASDIRECTED [facility] Last Admin: 06/14/20 05:09 Dose: 125 mls/hr Documented by: Sodium Chloride (Normal Saline) 1,000 mls @ 50 mls/hr IV ASDIRECTED [facility] Last Admin: 06/14/20 17:13 Dose: 50 mls/hr Documented by: Potassium Chloride/Dextrose/Sod Cl (D5 1/2 Ns W/ 20 Meq/L Kcl) 1,000 mls @ 75 mls/hr IV ASDIRECTED [facility] Last Admin: 06/18/20 05:57 Dose: 75 mls/hr Documented by: Potassium Chloride 20 meq/Lidocaine HCl 2 ml/ Sodium Chloride 112 mls @ 50 mls/hr IV Q2H [facility] Stop: 06/16/20 13:59 Last Admin: 06/16/20 12:39 Dose: 50 mls/hr Documented by: Levofloxacin/Dextrose 750 mg/ (Premix) 150 mls @ 100 mls/hr IV Q24H [facility] Stop: 06/18/20 13:00 Last Admin: 06/18/20 09:59 Dose: 100 mls/hr Documented by: Lorazepam (Ativan) 0 mg IV ASDIRECTED PRN; Protocol PRN Reason: ETOH WITHDRAWAL Last Admin: 06/18/20 01:01 Dose: 1 mg Documented by: Lorazepam (Ativan) 0 mg PO ASDIRECTED PRN; Protocol PRN Reason: ETOH WITHDRAWAL Last Admin: 06/19/20 02:10 Dose: 2 mg Documented by: Methylprednisolone Sodium Succinate (Solu-Medrol) 125 mg IVPUSH ONETIME ONE Stop: 06/16/20 10:01 Last Admin: 06/16/20 10:23 Dose: 125 mg Documented by: Methylprednisolone Sodium Succinate (Solu-Medrol) 62.5 mg IVPUSH Q8H [facility] Last Admin: 06/18/20 07:58 Dose: 62.5 mg Documented by: Prednisone (Prednisone) 20 mg PO BIDMEALS [facility] Last Admin: 06/19/20 08:09 Dose: 20 mg Documented by: Prednisone (Prednisone) 20 mg PO WITHBREAKFAST [facility] Last Admin: 06/20/20 09:08 Dose: 20 mg Documented by: Sodium Chloride (Saline Flush) 10 ml FLUSH ASDIRECTED PRN PRN Reason: Keep Vein Open - Exam Quality Assessment: DVT Prophylaxis General: Alert, Oriented, Cooperative, No Acute Distress Lungs: Clear to Auscultation, Normal Respiratory Effort, Decreased Breath Sounds Cardiovascular: Regular Rate, Regular Rhythm, No Murmurs GI/Abdominal Exam: Soft, Non-Tender, No Organomegaly, No Distention Extremities: Non-Tender, No Pedal Edema Sepsis Event Note - Evaluation Sepsis Screening Result: No Definite Risk - Focused Exam Vital Signs: Vital Signs Temp Pulse Resp BP BP Pulse Ox Pulse Ox 06/22/20 11:03 87 94 L 06/22/20 08:41 137/75 06/22/20 08:00 92 L 06/22/20 07:29 82 06/22/20 07:17 97.5 F 84 16 137/75 89 L - Problem List Review Problem List Initiated/Reviewed/Updated: Yes - My Orders Last 24 Hours: My Active Orders 06/22/20 09:03 Blood Culture x2 Reflex Set [OM.PC] Urgent 06/22/20 09:15 CULTURE BLOOD [BC] Stat 06/22/20 09:20 CULTURE BLOOD [BC] Stat - Plan Plan:: ASSESSMENT AND PLAN - ALCOHOL ABUSE WITH DELIRIUM TREMENS-improved with resolution of alcohol withdrawal -Physical therapy -Melatonin at bedtime -Supplement thiamine and folate -Outpatient chemical dependency counseling with Mignon Welch BILATERAL PNEUMONIA-complicated by acute respiratory failure with hypoxia and an exacerbation of her COPD. No major symptoms. -Antibiotic coverage with levofloxacin, will complete a full course of antibiotic therapy tomorrow -Scheduled nebs -Supplement oxygen as needed DRUG OVERDOSE/SUICIDE ATTEMPT-no obvious adverse reaction from the SSRI overdose/suicide attempt. Patient reports impulsive ingestion of medications with high stress. She has not having active thoughts of hurting herself. She is remorseful for the action. -Outpatient therapy COPD-wheezing has resolved. -Continue outpatient medical therapy MAINTENANCE ISSUES -DVT prophylaxis; enoxaparin -GI prophylaxis; not indicated -Viveros catheter; not indicated -Nutrition; regular diet DISPOSITION-anticipate discharge to home versus subacute rehab after the hospital stay. She is quite weak and still shaky and may benefit from a short stay at the longterm though she is not very excited about this idea.
[2020-06-22] MEDS: Thiamine 100 MG Tab PO SCH (21:24)
[2020-06-23] MEDS ORDERED: guaiFENesin/Dextromethorphan 100-10 MG/5 ML Soln 10 ML Cup PO PRN (01:10)
[2020-06-23] MEDS: Albuterol/Ipratropium 3.0-0.5 MG/3 ML Neb Soln NEB SCH ×2 (07:41→11:08)
[2020-06-23] MEDS: Glycopyrrolate 15.6 MCG Cap.W.Dev Kit of 6 IH SCH (07:45)
[2020-06-23] MEDS: Fluticasone-Salmeterol 113-14 MCG Powder Inhalant INH SCH (07:45)
[2020-06-23] MEDS: Enoxaparin 40 MG/0.4 ML Syringe SUBCUT SCH (08:38)
[2020-06-23] MEDS: amLODIPine 5 MG Tab PO SCH (08:39)
[2020-06-23] MEDS: atorvaSTATin 20 MG Tab PO SCH (08:39)
[2020-06-23] MEDS: PARoxetine 20 MG Tab PO SCH (08:39)
[2020-06-23] MEDS: Folic Acid 1 MG Tab PO SCH (08:39)
--- NOTE | 2020-06-23 11:16 | PCM.DCSUM1 ---
Discharge Summary - Hospital Course Brief History: Ms. Parnell is a 70-year-old woman who was admitted through the emergency department with alcohol intoxication and intentional drug overdose in suicide attempt. - Discharge Data Discharge Date: 06/23/20 Discharge Disposition: Home, Self-Care 01 Condition: Fair - Referral to Home Health Primary Care Physician: PCP None - Discharge Diagnosis/Problem(s) (1) Suicide attempt SNOMED Code(s): 26705400 ICD Code: T14.91XA - SUICIDE ATTEMPT, INITIAL ENCOUNTER Status: Acute Current Visit: Yes (2) Intentional overdose of drug in tablet form SNOMED Code(s): 419031700 ICD Code: T50.902A - POISONING BY UNSP DRUG/MEDS/BIOL SUBST, SELF-HARM, INIT Status: Acute Current Visit: Yes (3) Anxiety SNOMED Code(s): 28520690 ICD Code: F41.9 - ANXIETY DISORDER, UNSPECIFIED Status: Chronic Current Visit: No (4) COPD (chronic obstructive pulmonary disease) SNOMED Code(s): 01432786 ICD Code: J44.9 - CHRONIC OBSTRUCTIVE PULMONARY DISEASE, UNSPECIFIED Status: Chronic Current Visit: No (5) Type 2 diabetes mellitus SNOMED Code(s): 76404151 ICD Code: E11.9 - TYPE 2 DIABETES MELLITUS WITHOUT COMPLICATIONS Status: Chronic Current Visit: No (6) Pneumonia SNOMED Code(s): 839744108 ICD Code: J18.9 - PNEUMONIA, UNSPECIFIED ORGANISM Status: Acute Current Visit: Yes (7) Alcohol withdrawal delirium SNOMED Code(s): 6202328 ICD Code: F10.231 - ALCOHOL DEPENDENCE WITH WITHDRAWAL DELIRIUM Status: Acute Current Visit: Yes - Patient Summary/Data Consults: Consultations 06/18/20 08:44 PT Evaluation and Treatment [CONS] Routine Please Evaluate and Treat. PT Reason for Consult: Strengthening This query below is only for informational purposes and is not editable. Admission Diagnosis/Problem: Drug overdose - suicide Hospital Course: Ms. Parnell is a 70-year-old woman who was admitted through the emergency de partment for monitoring after having taken a drug overdose in an apparent suicide attempt. She had family visiting for the weekend and there was stress related to that as well as alcohol intoxication. She took an overdose of Paxil last night, which she now admits was a mistake. She currently denies suicidal ideation or intent. Poison control recommended that she be monitored for 12 hours. Ms. Parnell was admitted to the hospital and given IV fluids for hydration. Unfortunately shortly after admission she developed fulminant alcohol withdrawal with significant delirium. She was started on gabapentin 400 mg every 8 hours for 4 days then 200 mg every 8 hours for an additional 4 days. She was placed on alcohol withdrawal protocol and did receive a banana bag as well as thiamine and folic acid supplements. She did develop increased shortness of breath within a few days of admission, chest x-ray did document bibasilar infiltrates and she was started on antibiotic therapy. Cultures were obtained but remain negative throughout hospital stay and by the time of discharge she had completed a full course of antibiotic therapy. She did require supplemental oxygen during hospitalization, but by the time of discharge she had normal oxygen saturations on room air. She was very weak after recovering from her alcohol withdrawal and did receive daily physical therapy while in the hospital. We did recommend discharge to acute rehab for short period of time to regain strength which she refused. We also recommended home care services with home physical therapy and Occupational Therapy which he also refused. She will be discharged home, activity will be as tolerated and she will resume her usual diet. Follow-up appointment will be scheduled with primary care within 1 week. She denied symptoms of depression or suicidal ideation at the time of discharge and will schedule herself for follow-up concerning suicide attempt and alcohol dependency as an outpatient. - Patient Instructions Diet: Usual Diet as Tolerated, No Alcoholic Beverages Activity: As Tolerated - Discharge Plan *PRESCRIPTION DRUG MONITORING PROGRAM REVIEWED*: Not Applicable *COPY OF PRESCRIPTION DRUG MONITORING REPORT IN PATIENT [place]: Not Applicable Home Medications: Home Meds Albuterol Sulfate [Proair Hfa] 1 dose IH ASDIRECTED PRN 04/04/19 [History] Fluticasone Propion/Salmeterol [Advair 250-50 Diskus] 1 dose IH BID 04/04/19 [History] PARoxetine HCl [Paxil] 40 mg PO DAILY 04/04/19 [History] Tiotropium [Spiriva Handihaler] 2 puff IH DAILY 04/04/19 [History] amLODIPine Besylate [Amlodipine Besylate] 5 mg PO DAILY 05/10/19 [History] atorvaSTATin [Lipitor] 20 mg PO DAILY 05/10/19 [History] Referrals: Marichuy Peterson DO [Physician] - 06/25/20 11:20 am (Please arrive 15 minutes early to register for your appointment.) - Discharge Summary/Plan Comment DC Time >30 min.: No - Patient Data Vitals - Most Recent: Last Vital Signs Temp 97.5 F 06/23/20 07:00 Pulse 88 06/23/20 07:41 Resp 16 06/23/20 07:00 BP 141/95 H 06/23/20 08:39 Pulse Ox 89 L 06/23/20 08:00 Weight - Most Recent: 189 lb I&O - Last 24 hours: Intake & Output 06/22/20 06/23/20 06/23/20 22:59 06:59 14:59 Intake Total 1175 Balance 1175 GIOVANA Results - Last 24 hrs: Microbiology 06/22/20 09:20 Aerobic Blood Culture - Preliminary Blood - Venous - Lab Draw NO GROWTH AFTER 1 DAY Anaerobic Blood Culture - Preliminary NO GROWTH AFTER 1 DAY 06/22/20 09:15 Aerobic Blood Culture - Preliminary Blood - Venous NO GROWTH AFTER 1 DAY Anaerobic Blood Culture - Preliminary NO GROWTH AFTER 1 DAY Med Orders - Current: Current Medications Acetaminophen (Tylenol) 650 mg PO Q4H PRN PRN Reason: Pain (Mild 1-3)/fever Last Admin: 06/18/20 00:57 Dose: 650 mg Documented by: Albuterol (Proventil Neb Soln) 2.5 mg NEB Q4H PRN PRN Reason: shortness of breath/wheezing Last Admin: 06/20/20 11:21 Dose: 2.5 mg Documented by: Albuterol/Ipratropium (Duoneb 3.0-0.5 Mg/3 Ml) 3 ml NEB QIDRT [facility] Last Admin: 06/23/20 11:08 Dose: Not Given Documented by: Amlodipine Besylate (Norvasc) 5 mg PO DAILY [facility] Last Admin: 06/23/20 08:39 Dose: 5 mg Documented by: Atorvastatin Calcium (Lipitor) 20 mg PO DAILY [facility] Last Admin: 06/23/20 08:39 Dose: 20 mg Documented by: Enoxaparin Sodium (Lovenox) 40 mg SUBCUT DAILY [facility] Last Admin: 06/23/20 08:38 Dose: 40 mg Documented by: Folic Acid (Folic Acid) 1 mg PO DAILY [facility] Last Admin: 06/23/20 08:39 Dose: 1 mg Documented by: Glycopyrrolate (Seebri Neohaler) 15.6 mcg IH BIDRT [facility] Last Admin: 06/23/20 07:45 Dose: 15.6 mcg Documented by: Guaifenesin/Dextromethorphan (Robitussin Dm) 10 ml PO Q4H PRN PRN Reason: Cough Last Admin: 06/23/20 01:42 Dose: 10 ml Documented by: Haloperidol (Haldol) 2.5 mg PO Q6H PRN PRN Reason: Hallucinations Last Admin: 06/20/20 01:08 Dose: 2.5 mg Documented by: Levofloxacin 250 mg/ (Levofloxacin 500 mg) 750 mg PO ACBREAKFAST [facility] Last Admin: 06/23/20 07:38 Dose: 750 mg Documented by: Ondansetron HCl (Zofran) 4 mg IV Q4H PRN PRN Reason: Nausea/Vomiting Last Admin: 06/13/20 09:20 Dose: 4 mg Documented by: Paroxetine HCl (Paxil) 40 mg PO DAILY [facility] Last Admin: 06/23/20 08:39 Dose: 40 mg Documented by: Polyethylene Glycol (Miralax) 17 gm PO DAILY PRN PRN Reason: Constipation Last Admin: 06/21/20 16:30 Dose: 17 gm Documented by: Fluticasone/Salmeterol (Fluticasone-Salmeterol 113-14 Mcg Powder Inh) 1 puff INH BIDRT [facility] Last Admin: 06/23/20 07:45 Dose: 1 puff Documented by: Sodium Chloride (Saline Flush) 10 ml FLUSH ASDIRECTED PRN PRN Reason: Keep Vein Open Thiamine HCl (Vitamin B-1) 100 mg PO BEDTIME [facility] Last Admin: 06/22/20 21:24 Dose: 100 mg Documented by: Discontinued Medications Albuterol (Proventil Neb Soln) 2.5 mg NEB QIDRT [facility] Last Admin: 06/18/20 07:09 Dose: 2.5 mg Documented by: Gabapentin (Neurontin) 400 mg PO Q8H [facility] Stop: 06/17/20 22:01 Last Admin: 06/17/20 13:31 Dose: 400 mg Documented by: Gabapentin (Neurontin) 400 mg PO ONETIME ONE Stop: 06/13/20 14:46 Last Admin: 06/13/20 14:50 Dose: 400 mg Documented by: Gabapentin (Neurontin) 200 mg PO TID [facility] Last Admin: 06/22/20 08:40 Dose: 200 mg Documented by: Lactated Ringer's (Ringers, Lactated) 1,000 mls @ 125 mls/hr IV ASDIRECTED [facility] Last Admin: 06/13/20 02:49 Dose: 125 mls/hr Documented by: Sodium Chloride (Normal Saline) 1,000 mls @ 125 mls/hr IV ASDIRECTED [facility] Last Admin: 06/14/20 05:09 Dose: 125 mls/hr Documented by: Sodium Chloride (Normal Saline) 1,000 mls @ 50 mls/hr IV ASDIRECTED [facility] Last Admin: 06/14/20 17:13 Dose: 50 mls/hr Documented by: Potassium Chloride/Dextrose/Sod Cl (D5 1/2 Ns W/ 20 Meq/L Kcl) 1,000 mls @ 75 mls/hr IV ASDIRECTED [facility] Last Admin: 06/18/20 05:57 Dose: 75 mls/hr Documented by: Potassium Chloride 20 meq/Lidocaine HCl 2 ml/ Sodium Chloride 112 mls @ 50 mls/hr IV Q2H [facility] Stop: 06/16/20 13:59 Last Admin: 06/16/20 12:39 Dose: 50 mls/hr Documented by: Levofloxacin/Dextrose 750 mg/ (Premix) 150 mls @ 100 mls/hr IV Q24H [facility] Stop: 06/18/20 13:00 Last Admin: 06/18/20 09:59 Dose: 100 mls/hr Documented by: Lorazepam (Ativan) 0 mg IV ASDIRECTED PRN; Protocol PRN Reason: ETOH WITHDRAWAL Last Admin: 06/18/20 01:01 Dose: 1 mg Documented by: Lorazepam (Ativan) 0 mg PO ASDIRECTED PRN; Protocol PRN Reason: ETOH WITHDRAWAL Last Admin: 06/19/20 02:10 Dose: 2 mg Documented by: Methylprednisolone Sodium Succinate (Solu-Medrol) 125 mg IVPUSH ONETIME ONE Stop: 06/16/20 10:01 Last Admin: 06/16/20 10:23 Dose: 125 mg Documented by: Methylprednisolone Sodium Succinate (Solu-Medrol) 62.5 mg IVPUSH Q8H [facility] Last Admin: 06/18/20 07:58 Dose: 62.5 mg Documented by: Prednisone (Prednisone) 20 mg PO BIDMEALS [facility] Last Admin: 06/19/20 08:09 Dose: 20 mg Documented by: Prednisone (Prednisone) 20 mg PO WITHBREAKFAST [facility] Last Admin: 06/20/20 09:08 Dose: 20 mg Documented by: Sodium Chloride (Saline Flush) 10 ml FLUSH ASDIRECTED PRN PRN Reason: Keep Vein Open - Exam Quality Assessment: Reports: DVT Prophylaxis General: Reports: Alert, Oriented, Cooperative, No Acute Distress Lungs: Reports: Clear to Auscultation, Normal Respiratory Effort Cardiovascular: Reports: Regular Rate, Regular Rhythm, No Murmurs GI/Abdominal Exam: Soft, Non-Tender, No Organomegaly, No Distention Psy/Mental Status: Reports: Alert, Normal Affect, Normal Mood. Denies: Anxious, Depressed, Suicidal Ideation, Withdrawal Symptoms
--- NOTE | 2020-06-24 13:18 | PCM.PN ---
- General Info Date of Service: 06/21/20 Subjective Update: Ms. Parnell has shown slow continuous improvement from her alcohol withdrawal and drug overdose. Her main issue at this time is persistent physical weakness but this does seem to be slowly improving. Functional Status: Reports: Tolerating Diet, Ambulating, Urinating - Review of Systems Pulmonary: Reports: No Symptoms Cardiovascular: Reports: No Symptoms Gastrointestinal: Reports: No Symptoms - Patient Data Vitals - Most Recent: Last Vital Signs Temp 97.5 F 06/23/20 07:00 Pulse 88 06/23/20 07:41 Resp 16 06/23/20 07:00 BP 141/95 H 06/23/20 08:39 Pulse Ox 89 L 06/23/20 08:00 Weight - Most Recent: 189 lb Greg[facility] Results Last 24 Hours: Microbiology 06/22/20 09:20 Aerobic Blood Culture - Preliminary Blood - Venous - Lab Draw NO GROWTH AFTER 2 DAYS Anaerobic Blood Culture - Preliminary NO GROWTH AFTER 2 DAYS 06/22/20 09:15 Aerobic Blood Culture - Preliminary Blood - Venous NO GROWTH AFTER 2 DAYS Anaerobic Blood Culture - Preliminary NO GROWTH AFTER 2 DAYS Med Orders - Current: Current Medications Discontinued Medications Acetaminophen (Tylenol) 650 mg PO Q4H PRN PRN Reason: Pain (Mild 1-3)/fever Last Admin: 06/18/20 00:57 Dose: 650 mg Documented by: Albuterol (Proventil Neb Soln) 2.5 mg NEB QIDRT [facility] Last Admin: 06/18/20 07:09 Dose: 2.5 mg Documented by: Albuterol (Proventil Neb Soln) 2.5 mg NEB Q4H PRN PRN Reason: shortness of breath/wheezing Last Admin: 06/20/20 11:21 Dose: 2.5 mg Documented by: Albuterol/Ipratropium (Duoneb 3.0-0.5 Mg/3 Ml) 3 ml NEB QIDRT [facility] Last Admin: 06/23/20 11:08 Dose: Not Given Documented by: Amlodipine Besylate (Norvasc) 5 mg PO DAILY [facility] Last Admin: 06/23/20 08:39 Dose: 5 mg Documented by: Atorvastatin Calcium (Lipitor) 20 mg PO DAILY [facility] Last Admin: 06/23/20 08:39 Dose: 20 mg Documented by: Enoxaparin Sodium (Lovenox) 40 mg SUBCUT DAILY [facility] Last Admin: 06/23/20 08:38 Dose: 40 mg Documented by: Folic Acid (Folic Acid) 1 mg PO DAILY [facility] Last Admin: 06/23/20 08:39 Dose: 1 mg Documented by: Gabapentin (Neurontin) 400 mg PO Q8H [facility] Stop: 06/17/20 22:01 Last Admin: 06/17/20 13:31 Dose: 400 mg Documented by: Gabapentin (Neurontin) 400 mg PO ONETIME ONE Stop: 06/13/20 14:46 Last Admin: 06/13/20 14:50 Dose: 400 mg Documented by: Gabapentin (Neurontin) 200 mg PO TID [facility] Last Admin: 06/22/20 08:40 Dose: 200 mg Documented by: Glycopyrrolate (Seebri Neohaler) 15.6 mcg IH BIDRT [facility] Last Admin: 06/23/20 07:45 Dose: 15.6 mcg Documented by: Guaifenesin/Dextromethorphan (Robitussin Dm) 10 ml PO Q4H PRN PRN Reason: Cough Last Admin: 06/23/20 01:42 Dose: 10 ml Documented by: Haloperidol (Haldol) 2.5 mg PO Q6H PRN PRN Reason: Hallucinations Last Admin: 06/20/20 01:08 Dose: 2.5 mg Documented by: Lactated Ringer's (Ringers, Lactated) 1,000 mls @ 125 mls/hr IV ASDIRECTED [facility] Last Admin: 06/13/20 02:49 Dose: 125 mls/hr Documented by: Sodium Chloride (Normal Saline) 1,000 mls @ 125 mls/hr IV ASDIRECTED [facility] Last Admin: 06/14/20 05:09 Dose: 125 mls/hr Documented by: Sodium Chloride (Normal Saline) 1,000 mls @ 50 mls/hr IV ASDIRECTED [facility] Last Admin: 06/14/20 17:13 Dose: 50 mls/hr Documented by: Potassium Chloride/Dextrose/Sod Cl (D5 1/2 Ns W/ 20 Meq/L Kcl) 1,000 mls @ 75 mls/hr IV ASDIRECTED [facility] Last Admin: 06/18/20 05:57 Dose: 75 mls/hr Documented by: Potassium Chloride 20 meq/Lidocaine HCl 2 ml/ Sodium Chloride 112 mls @ 50 mls/hr IV Q2H [facility] Stop: 06/16/20 13:59 Last Admin: 06/16/20 12:39 Dose: 50 mls/hr Documented by: Levofloxacin/Dextrose 750 mg/ (Premix) 150 mls @ 100 mls/hr IV Q24H [facility] Stop: 06/18/20 13:00 Last Admin: 06/18/20 09:59 Dose: 100 mls/hr Documented by: Levofloxacin 250 mg/ (Levofloxacin 500 mg) 750 mg PO ACBREAKFAST [facility] Last Admin: 06/23/20 07:38 Dose: 750 mg Documented by: Lorazepam (Ativan) 0 mg IV ASDIRECTED PRN; Protocol PRN Reason: ETOH WITHDRAWAL Last Admin: 06/18/20 01:01 Dose: 1 mg Documented by: Lorazepam (Ativan) 0 mg PO ASDIRECTED PRN; Protocol PRN Reason: ETOH WITHDRAWAL Last Admin: 06/19/20 02:10 Dose: 2 mg Documented by: Methylprednisolone Sodium Succinate (Solu-Medrol) 125 mg IVPUSH ONETIME ONE Stop: 06/16/20 10:01 Last Admin: 06/16/20 10:23 Dose: 125 mg Documented by: Methylprednisolone Sodium Succinate (Solu-Medrol) 62.5 mg IVPUSH Q8H [facility] Last Admin: 06/18/20 07:58 Dose: 62.5 mg Documented by: Ondansetron HCl (Zofran) 4 mg IV Q4H PRN PRN Reason: Nausea/Vomiting Last Admin: 06/13/20 09:20 Dose: 4 mg Documented by: Paroxetine HCl (Paxil) 40 mg PO DAILY [facility] Last Admin: 06/23/20 08:39 Dose: 40 mg Documented by: Polyethylene Glycol (Miralax) 17 gm PO DAILY PRN PRN Reason: Constipation Last Admin: 06/21/20 16:30 Dose: 17 gm Documented by: Prednisone (Prednisone) 20 mg PO BIDMEALS [facility] Last Admin: 06/19/20 08:09 Dose: 20 mg Documented by: Prednisone (Prednisone) 20 mg PO WITHBREAKFAST [facility] Last Admin: 06/20/20 09:08 Dose: 20 mg Documented by: Fluticasone/Salmeterol (Fluticasone-Salmeterol 113-14 Mcg Powder Inh) 1 puff INH BIDRT [facility] Last Admin: 06/23/20 07:45 Dose: 1 puff Documented by: Sodium Chloride (Saline Flush) 10 ml FLUSH ASDIRECTED PRN PRN Reason: Keep Vein Open Sodium Chloride (Saline Flush) 10 ml FLUSH ASDIRECTED PRN PRN Reason: Keep Vein Open Thiamine HCl (Vitamin B-1) 100 mg PO BEDTIME [facility] Last Admin: 06/22/20 21:24 Dose: 100 mg Documented by: - Exam General: Alert, Oriented, Cooperative, No Acute Distress Lungs: Clear to Auscultation, Normal Respiratory Effort, Decreased Breath Sounds Cardiovascular: Regular Rate, Regular Rhythm, No Murmurs GI/Abdominal Exam: Soft, Non-Tender, No Organomegaly, No Distention Sepsis Event Note - Evaluation Sepsis Screening Result: No Definite Risk - Problem List & Annotations (1) Suicide attempt SNOMED Code(s): 46740991 Code(s): T14.91XA - SUICIDE ATTEMPT, INITIAL ENCOUNTER Status: Acute (2) Intentional overdose of drug in tablet form SNOMED Code(s): 053187746 Code(s): T50.902A - POISONING BY UNSP DRUG/MEDS/BIOL SUBST, SELF-HARM, INIT Status: Acute (3) Anxiety SNOMED Code(s): 14871347 Code(s): F41.9 - ANXIETY DISORDER, UNSPECIFIED Status: Chronic (4) COPD (chronic obstructive pulmonary disease) SNOMED Code(s): 86361083 Code(s): J44.9 - CHRONIC OBSTRUCTIVE PULMONARY DISEASE, UNSPECIFIED Status: Chronic (5) Type 2 diabetes mellitus SNOMED Code(s): 47257956 Code(s): E11.9 - TYPE 2 DIABETES MELLITUS WITHOUT COMPLICATIONS Status: Chronic (6) Pneumonia SNOMED Code(s): 556305310 Code(s): J18.9 - PNEUMONIA, UNSPECIFIED ORGANISM Status: Acute (7) Alcohol withdrawal delirium SNOMED Code(s): 4550298 Code(s): F10.231 - ALCOHOL DEPENDENCE WITH WITHDRAWAL DELIRIUM Status: Acute - Problem List Review Problem List Initiated/Reviewed/Updated: Yes - Plan Plan:: ASSESSMENT AND PLAN - ALCOHOL ABUSE WITH DELIRIUM TREMENS-improved with resolution of alcohol withdrawal -Physical therapy -Melatonin at bedtime -Supplement thiamine and folate -Outpatient chemical dependency counseling with Mignon Welch BILATERAL PNEUMONIA-complicated by acute respiratory failure with hypoxia and an exacerbation of her COPD. No major symptoms. -Antibiotic coverage with levofloxacin, will complete a full course of antibiotic therapy -Scheduled nebs -Supplement oxygen as needed DRUG OVERDOSE/SUICIDE ATTEMPT-no obvious adverse reaction from the SSRI overdose/suicide attempt. Patient reports impulsive ingestion of medications with high stress. She has not having active thoughts of hurting herself. She is remorseful for the action. -Outpatient therapy COPD-wheezing has resolved. -Continue outpatient medical therapy MAINTENANCE ISSUES -DVT prophylaxis; enoxaparin -GI prophylaxis; not indicated -Viveros catheter; not indicated -Nutrition; regular diet DISPOSITION-anticipate discharge to home versus subacute rehab after the hospital stay.
== END 2020-06-23 13:15 | disposition home or self-care (01) | DRG 917 ==
LOC: JP.ED 01:36 → JP.ICU 05:36 → JP.MS 06-19 14:27
PROVIDERS: ADMIT Hospitalist; ATTEND Hospitalist
DX: T43.222A Poisoning by selective serotonin reuptake inhibitors, intentional self-harm, initial encounter (principal); T51.92XA Toxic effect of unspecified alcohol, intentional self-harm, initial encounter; J18.9 Pneumonia, unspecified organism; J96.00 Acute respiratory failure, unspecified whether with hypoxia or hypercapnia; J44.9 Chronic obstructive pulmonary disease, unspecified; M19.90 Unspecified osteoarthritis, unspecified site; F32.9 Major depressive disorder, single episode, unspecified; F10.231 Alcohol dependence with withdrawal delirium; E10.8 Type 1 diabetes mellitus with unspecified complications; J44.0 Chronic obstructive pulmonary disease with (acute) lower respiratory infection; Z98.49 Cataract extraction status, unspecified eye; Z90.710 Acquired absence of both cervix and uterus; F41.9 Anxiety disorder, unspecified; E78.00 Pure hypercholesterolemia, unspecified; I10 Essential (primary) hypertension; E10.9 Type 1 diabetes mellitus without complications; E66.9 Obesity, unspecified; Z87.891 Personal history of nicotine dependence; Z79.899 Other long term (current) drug therapy; Z79.51 Long term (current) use of inhaled steroids; Z68.34 Body mass index [BMI] 34.0-34.9, adult
CPT/HCPCS: 36415; 80053; 80305; 80307 ×3; 81001; 83735; 85025; 85610; 93005; 93010; 96360; 96361; 99285 ×2; J7120; 70450; 71045; 80048; 85027; 87040; 94640; 97110-GP; 97116-GP; 97162-GP; 97530-GP; 99222-AI; 99231; 99232; 99238; A9270-GY; J1650; J1956; J2001; J2060; J2405; J2930; J3480; J7030; J7050; J7512; J7620-GY